=== PATIENT | male | born 1945 | race Caucasian/White ===

== ENCOUNTER 2020-12-01 08:11 | Inpatient (IN) | payer MEDICARE, OTHER, SELFPAY ==
[2020-12-01] VITALS (16 sets, daily range): BP systolic 122–173; BP diastolic 70–94; PULSE 74–97; RESP 10–22; TEMP 36.6–37.4; O2SAT 94–99; BMI 28.4
--- NOTE | 2020-12-01 | DI.MRI.S_ITS ---
PROCEDURE: MR STROKE Pre- and post-contrast brain MRI, non-contrast brain MR angiogram, pre- and postcontrast neck MR angiogram INDICATIONS: r/o acute infarct TECHNIQUE: Brain: Noncontrast axial T1 spin echo, axial T2 fast spin echo, sagittal and axial FLAIR, coronal T2 fast spin echo, axial gradient echo, axial diffusion and ADC through the brain. After the administration of contrast, axial 3D VIBE of the cranial vasculature and brain. Brain MRA: Non-contrast 3-D time of flight MR angiogram, with multiple qbdskvp-euhuxorfy-qqlkpteraf (MIP) reformats performed. Neck MRA: Axial and sagittal TruFISP through the neck. Coronal dynamic MR angiogram during administration of contrast in the arterial and venous phases, with 3-dimenstional ciiwmxb-ehtniieyp-tclxmsvmdf (MIP) reformats constructed from subtraction images. COMPARISON: [facility], CT, CT HEAD/BRAIN WO CON, 12/01/2020, 8:45. FINDINGS: Image quality: Degraded secondary to motion artifact. BRAIN: CSF spaces: Ventricles are normal in size and shape. Basal cisterns are patent. No extra-axial fluid collections. Brain: No intracranial bleeds or mass effects. Arceo-white matter interface is normal. Multiple foci of restricted diffusion noted in the right centrum semiovale, right gamble radiata, right insula, right putamen and at the junction of the right temporal and occipital lobes compatible with acute infarcts. Small chronic lacunar infarcts noted in the right frontal subcortical white matter. Brainstem appears normal. Normal intravascular flow voids are present. Dural sinuses demonstrate normal postcontrast enhancement. Small area of curvilinear gyral enhancement noted in the right occipital lobe medially dorsal to area of acute infarction concerning for area of late subacute/early chronic infarction. Skull and face: Calvarial marrow signal is normal. Orbits appear normal. Sinuses: Sinuses and mastoids are clear. BRAIN MR ANGIOGRAM: Anterior circulation: Intracranial internal carotid arteries are normal in size and enhancement. The flow within the paired anterior cerebral arteries is normal. 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 There is absence of flow signal in the M1 and M2 segments of the right middle cerebral artery compatible with occlusion. Normal flow signal noted in the left middle cerebral artery. The anterior communicating artery is seen. No stenoses, occlusions, or aneurysms. Posterior circulation: The visualized portions of the vertebral arteries demonstrate normal caliber, and join to form a normal appearing basilar artery. The flow within the posterior cerebral arteries is normal and symmetric. No stenoses, occlusions, or aneurysms. NECK MR ANGIOGRAM: Carotids: Great vessels demonstrate a conventional anatomy as they arise from the aortic arch. The origins of the common carotid arteries appear patent. The calibers and courses of both common carotid arteries are normal. Mild atherosclerotic irregularity noted in the origin of the right internal carotid artery which causes less than 50% stenosis. Moderate atherosclerotic irregularity noted in the origin of the left internal carotid artery which causes approximately 50-60% stenosis of the vessel. Posterior circulation: The origins of the vertebral arteries are poorly visualized due to motion artifact. Well visualized portions of the vertebral arteries demonstrate normal course and caliber, and join to form a normal appearing basilar artery. Miscellaneous: Subclavian arteries appear patent. Pre-contrast images through the neck show no soft tissue abnormalities. IMPRESSION: BRAIN MRI: 1. Acute infarcts involving the right centrum semiovale, right gamble radiata, right putamen, right insula and the junction of the right temporal-occipital lobes. 2. Small subacute infarct involving the right occipital lobe. 3. Chronic lacunar infarcts involving the right frontal subcortical white matter. 4. No intracranial hemorrhage. 5. No abnormal intracranial mass or mass effect. BRAIN MR ANGIOGRAM: 1. Right middle cerebral artery occlusion. 2. Otherwise, normal MR angiogram of the head within limitations related to motion artifact. NECK MR ANGIOGRAM: 1. Less than 50% stenosis of the origin of the right internal carotid artery. 2. 50-60% stenosis of the origin left internal carotid artery. 3. Vertebral arteries appear fully patent where well visualized. Findings telephoned to Dr. Valdes on December 01, 2020 at 11:55 a.m. Dictated by: Caitlin Faust MD, PhD on 12/01/2020 at 11:40 Approved by: Caitlin Faust MD, PhD on 12/01/2020 at 11:58
--- NOTE | 2020-12-01 08:13 | DI.CT.S_ITS ---
PROCEDURE: CT HEAD/BRAIN WO CON INDICATIONS: Altered mental status TECHNIQUE: Noncontrast 4.5 mm thick angled axial sections acquired from the foramen magnum to the vertex, with coronal and sagittal reformats. For radiation dose reduction, the following was used: automated exposure control, adjustment of mA and/or kV according to patient size. COMPARISON: [facility], MR, MR BRAIN WITHOUT CONTRAST, 07/31/2019, 8:25. [facility], CT, CT HEAD WITHOUT CONTRAST, 07/31/2019, 0:32. FINDINGS: Image quality: Excellent. CSF spaces: Basal cisterns are patent. No extra-axial fluid collections. The ventricles are symmetric in size and shape. Brain: No intracranial bleeds or masses. There is cerebral volume loss for age, with resultant ventricular and sulcal prominence. There are periventricular and deep white matter chronic small vessel ischemic changes. Chronic small lacunar infarcts involving the right frontal subcortical white matter in the right caudate body with expected evolution compared to prior MRI obtained July 31, 2019. New hypodensity noted in the left internal capsule which may represent subacute infarct. There is intracranial internal carotid artery atherosclerosis. Skull and face: Calvarium and visualized facial bones appear intact, without suspicious lesions. Sinuses: Visualized sinuses and mastoids are clear. IMPRESSION: 1. Small hypodensity in the left internal capsule which may represent subacute infarct. Recommend MRI of the brain for further evaluation. 2. Multiple small right frontal subcortical white matter chronic lacunar infarcts have undergone expected evolution interval since prior exam obtained July 13, 2019. 3. No intracranial hemorrhage. Dictated by: Caitlin Faust MD, PhD on 12/01/2020 at 8:57 Approved by: Caitlin Faust MD, PhD on 12/01/2020 at 9:02
--- NOTE | 2020-12-01 08:20 | ED.GENADULT ---
HPI - General Adult General Chief complaint: Neuro Symptoms/Deficit Stated complaint: Confused Time Seen by Provider: 12/01/20 08:11 Source: patient and EMS Mode of arrival: EMS Limitations: altered mental status History of Present Illness HPI narrative: Patient is a 75-year-old male brought in by EMS for evaluation of confusion and left-sided deficits. Is reported by EMS that the patient has had a stroke a couple years ago with right-sided deficits and is now having left-sided deficit. He was found confused this morning. Blood sugar was in the 70s prior to arrival. Patient able to only provided minimal information secondary to problems speaking. Related Data Home Medications Medication Instructions Recorded Confirmed albuterol sulfate [ProAir HFA] 2 puff INHALATION Q4H PRN 12/01/20 12/01/20 amitriptyline 25 mg PO BEDTIME 12/01/20 12/01/20 amlodipine 5 mg PO BEDTIME 12/01/20 12/01/20 aspirin 81 mg PO DAILY 12/01/20 12/01/20 atorvastatin 80 mg PO BEDTIME 12/01/20 12/01/20 baclofen 5 mg PO BEDTIME 12/01/20 12/01/20 clopidogrel 75 mg PO DAILY 12/01/20 12/01/20 fluticasone propionate [Flonase] 2 spray INTRANASAL BID 12/01/20 12/01/20 fluticasone propionate [Flovent 2 puff INHALATION BID 12/01/20 12/01/20 HFA] lisinopril 20 mg PO DAILY 12/01/20 12/01/20 sertraline 50 mg PO DAILY 12/01/20 12/01/20 Allergies Allergy/AdvReac Type Severity Reaction Status Date / Time No Known Drug Allergies Allergy Verified 12/01/20 14:22 Review of Systems Review of Systems ROS Unobtainable: Unobtainable due to mental status/LOC Patient History Medical History Anxiety COPD (chronic obstructive pulmonary disease) with emphysema CVA (cerebral vascular accident) Hypertension Social History household members: children lives independently: Yes Smoking Status: Former smoker Exam Initial Vital Signs Initial Vital Signs: Vital Signs Temperature 97.9 F 12/01/20 08:16 Pulse Rate 74 12/01/20 08:16 Blood Pressure 173/89 H 12/01/20 08:16 Pulse Oximetry 99 12/01/20 08:16 Const General: cooperative, comfortable and No ill appearing Limitations: altered mental status HENMT Head: normal to inspection and normocephalic Ears: hearing grossly normal bilaterally Nose: external nose normal Mouth: oral mucosae normal Eyes Pupils: PERRL Chest Chest: No tenderness Resp Effort & Inspection: normal respiratory effort Auscultation: clear to auscultation bilaterally Cardio Rate: regular rate Rhythm: regular rhythm GI Inspection: non-distended Palpation: soft Back/Spine/Pelvis Cervical Spine: No cervical spinal tenderness Skin Lesions: no lesions Rashes: no rashes Neuro General: patient alert and patient awake Speech: abnormal speech Extrem General: capillary refill normal and No edema Psych Appearance: grossly normal and well kempt Scores GCS [place] coma scale eye opening: Spontaneous Jenna coma scale verbal response: Words [place] coma scale motor response: Obey commands Jenna coma scale total score: 13 NIH Stroke Scale Level of Conciousness: Alert, keenly responsive Ask month/age: Answers one question correctly, intubated follow commands Open/close eyes, close hand: Performs both tasks correctly Best gaze horizontal: Normal Visual clements: No visual loss Facial palsy: Minor paralysis, flattened nasolabial fold, asymmetry on smiling Left arm drift: No drift for full 10 sec Right arm drift: No drift for full 10 sec Left leg drift: Drifts down, not to bed Right leg drift: No drift for full 5 sec Limb ataxia: Present in two limbs Sensory on face/arms/legs: Normal, no sensory loss Best language: Severe aphasia, not much is understood, fragmented Dysarthria: Mild to mod,some slurring Extinction or inattention: No abnormality Total NIH Stroke scale score: 8 Course Orders Ordered: ED Orders 12/01/20 08:53 COVID19 - ADMIT (PROJECT GEOLOGIST swab/PCR) Stat 12/01/20 10:05 XR chest 1V Stat 12/01/20 10:07 Consult to [facility] DOCTOR[facility]EARCHER - Director Script Stat 12/01/20 11:56 Blood Culture Stat Albuterol (Albuterol 2.5 Mg/3 Ml Neb (Adult)) 2.5 mg INH [id number] PRN PRN Reason: Shortness Of Breath Amitriptyline HCl (Amitriptyline 25 Mg Tablet) 25 mg PO BEDTIME BRANDIE Amlodipine Besylate (Amlodipine 5 Mg Tablet) 5 mg PO BEDTIME BRANDIE Atorvastatin Calcium (Atorvastatin 20 Mg Tablet) 80 mg PO BEDTIME BRANDIE Budesonide (Budesonide 0.5 Mg/2 Ml Neb) 0.5 mg INH RTBID BRANDIE Hydralazine HCl (Hydralazine 20 Mg/Ml Vial) 10 mg IV Q6HR PRN PRN Reason: Hypertension Sodium Chloride (Normal Saline 0.9%) 1,000 mls @ 125 mls/hr IV CONT BRANDIE Heparin Sodium/Dextrose (Heparin Drip) 25,000 unit in 500 mls @ 20 mls/hr IV CONT BRANDIE; Protocol Lisinopril (Lisinopril 20 Mg Tablet) 20 mg PO DAILY BRANDIE Sertraline HCl (Sertraline 50 Mg Tablet) 50 mg PO DAILY BRANDIE Discontinued Medications Midodrine (Midodrine Hcl 5 Mg Tablet) 10 mg PO NOW ONE Stop: 12/01/20 08:52 Vital Signs Vital signs: Vital Signs - 8 hr 12/01/20 10:21 12/01/20 11:35 12/01/20 11:38 Pulse Rate 81 96 H 92 H Respiratory Rate 16 22 Blood Pressure 131/94 H Pulse Oximetry 98 97 98 12/01/20 12:00 12/01/20 12:30 12/01/20 13:00 Pulse Rate 81 77 79 Respiratory Rate 20 17 14 Blood Pressure 137/78 146/81 H 132/70 Pulse Oximetry 98 97 96 12/01/20 13:30 Pulse Rate 78 Respiratory Rate 12 Blood Pressure 122/74 Pulse Oximetry 96 Medical Decision Making Lab Data Lab results reviewed: Yes I reviewed the patient's lab results. Result diagrams: 12/01/20 08:27 12/01/20 08:27 Labs: Lab Results 12/01/20 12/01/20 12/01/20 Range/Units 08:27 08:27 08:27 WBC 7.5 (4.5-11.0) X10^3/uL RBC 4.74 (4.5-5.9) X10^6/uL Hgb 15.4 (13.5-17.5) g/dL Hct 44.2 (41-53) % MCV 93.1 (80-100) fL MCH 32.4 (26-34) PG MCHC 34.8 (30-36) % RDW 13.1 (11.6-14.8) % Plt Count 290 (150-400) X10^3/uL Neut % (Auto) 64.0 (50-75) % Lymph % (Auto) 24.3 L (25-40) % [place] % (Auto) 9.4 (3-14) % Eos % (Auto) 1.4 L (2-4) % Baso % (Auto) 0.9 (0-2) % Neut # (Auto) 4800 (4570-7563) /uL Lymph # (Auto) 1800 (6637-0832) /uL [place] # (Auto) 700 (0-900) /uL Eos # (Auto) 100 (0-450) /uL Baso # (Auto) 100 (0-100) /uL PT 11.0 (10.1-12.7) SECONDS INR 1.0 (0.9-1.3) APTT 32 (26.4-36.2) SECONDS Sodium 136 L (137-145) mmol/L Potassium 3.8 (3.4-5.1) mmol/L Chloride 104 (98-107) mmol/L Carbon Dioxide 24 (22-32) mmol/L BUN 24 H (9-20) mg/dL Creatinine 0.82 (0.66-1.25) mg/dL Estimated GFR > 60.0 (>60) mL/min BUN/Creatinine Ratio 29.3 H (6-22) Glucose 106 (80-110) mg/dL Calcium 9.4 (8.4-10.2) mg/dL Total Bilirubin 0.7 (0.2-1.3) mg/dL AST 60 H (17-59) IU/L ALT 63 H (<50) IU/L Alkaline Phosphatase 92 (38-126) U/L Ammonia (9-30) umol/L Total Creatine Kinase 159 (55-170) U/L Total Protein 7.5 (6.3-8.2) g/dL Albumin 4.2 (3.5-5.0) g/dL Globulin 3.3 (1.7-4.1) g/dL Albumin/Globulin Ratio 1.3 (1.0-2.8) Lipase 208 (23-300) U/L Ethyl Alcohol < 10 ( - 10) mg/dL SARS-CoV-2 (PCR) (Negative) 12/01/20 12/01/20 Range/Units 08:27 08:53 WBC (4.5-11.0) X10^3/uL RBC (4.5-5.9) X10^6/uL Hgb (13.5-17.5) g/dL Hct (41-53) % MCV (80-100) fL MCH (26-34) PG MCHC (30-36) % RDW (11.6-14.8) % Plt Count (150-400) X10^3/uL Neut % (Auto) (50-75) % Lymph % (Auto) (25-40) % [place] % (Auto) (3-14) % Eos % (Auto) (2-4) % Baso % (Auto) (0-2) % Neut # (Auto) (3458-4878) /uL Lymph # (Auto) (9187-0108) /uL [place] # (Auto) (0-900) /uL Eos # (Auto) (0-450) /uL Baso # (Auto) (0-100) /uL PT (10.1-12.7) SECONDS INR (0.9-1.3) APTT (26.4-36.2) SECONDS Sodium (137-145) mmol/L Potassium (3.4-5.1) mmol/L Chloride (98-107) mmol/L Carbon Dioxide (22-32) mmol/L BUN (9-20) mg/dL Creatinine (0.66-1.25) mg/dL Estimated GFR (>60) mL/min BUN/Creatinine Ratio (6-22) Glucose (80-110) mg/dL Calcium (8.4-10.2) mg/dL Total Bilirubin (0.2-1.3) mg/dL AST (17-59) IU/L ALT (<50) IU/L Alkaline Phosphatase (38-126) U/L Ammonia < 9 L (9-30) umol/L Total Creatine Kinase (55-170) U/L Total Protein (6.3-8.2) g/dL Albumin (3.5-5.0) g/dL Globulin (1.7-4.1) g/dL Albumin/Globulin Ratio (1.0-2.8) Lipase (23-300) U/L Ethyl Alcohol ( - 10) mg/dL SARS-CoV-2 (PCR) Negative (Negative) Imaging Data CT scan - head: Radiologist's Impression: [address] [id number] Scan ReportSigned Patient: Senthil Anderson HMR#: [id number]: 1945cct:[id number]/Sex: 75 / MDate of Service: 12/01/20Loc: EDAccession Number: [id number] Procedure: CT head/brain wo con Ordering Provider: Kevon Martinez D.O. PROCEDURE: CT HEAD/BRAIN WO CON INDICATIONS: Altered mental status TECHNIQUE: Noncontrast 4.5 mm thick angled axial sections acquired from the foramen magnum to the vertex, with coronal and sagittal reformats. For radiation dose reduction, the following was used: automated exposure control, adjustment of mA and/or kV according to patient size. COMPARISON: [facility], MR, MR BRAIN WITHOUT CONTRAST, 07/31/2019, 8:25. [facility], CT, CT HEAD WITHOUT CONTRAST, 07/31/2019, 0:32. FINDINGS: Image quality: Excellent. CSF spaces: Basal cisterns are patent. No extra-axial fluid collections. The ventricles are symmetric in size and shape. Brain: No intracranial bleeds or masses. There is cerebral volume loss for age, with resultant ventricular and sulcal prominence. There are periventricular and deep white matter chronic small vessel ischemic changes. Chronic small lacunar infarcts involving the right frontal subcortical white matter in the right caudate body with expected evolution compared to prior MRI obtained July 31, 2019. New hypodensity noted in the left internal capsule which may represent subacute infarct. There is intracranial internal carotid artery atherosclerosis. Skull and face: Calvarium and visualized facial bones appear intact, without suspicious lesions. Sinuses: Visualized sinuses and mastoids are clear. IMPRESSION: 1. Small hypodensity in the left internal capsule which may represent subacute infarct. Recommend MRI of the brain for further evaluation. 2. Multiple small right frontal subcortical white matter chronic lacunar infarcts have undergone expected evolution interval since prior exam obtained July 13, 2019. 3. No intracranial hemorrhage. Dictated by: Caitlin Faust MD, PhD on 12/01/2020 at 8:57 Approved by: Caitlin Faust MD, PhD on 12/01/2020 at 9:02 Chest x-ray: Radiologist's Impression: [address] [id number] ReportSigned Patient: Senthil Anderson [facility]#: [id number]: 1945cct:[id number]/Sex: 75 / MDate of Service: 12/01/20Loc: EDAccession Number: [id number] Procedure: XR chest 1V Ordering Provider: Kevon Martinez D.O. PROCEDURE: XR CHEST 1V INDICATIONS: cva TECHNIQUE: One view of the chest was acquired. COMPARISON: None. FINDINGS: Surgical changes and devices: None. Lungs and pleura: Lungs are clear. No pleural effusions or pneumothorax. Mediastinum: Mediastinal contours appear normal. Heart size is normal. Bones and chest wall: No suspicious bony lesions. Overlying soft tissues appear unremarkable. IMPRESSION: Normal for age, source of current stroke symptoms is not seen. Dictated by: Ankit Colunga M.D. on 12/01/2020 at 11:10 Approved by: Ankit Colunga M.D. on 12/01/2020 at 11:10 Stroke MRI: Radiologist's Impression: [address] [id number] Resonance ReportSigned Patient: Senthil Anderson [facility]#: [id number]: 1945cct:[id number]/Sex: 75 / MDate of Service: 12/01/20Loc: EDAccession Number: [id number] Procedure: MR stroke Ordering Provider: Russ Valdes D.O. PROCEDURE: MR STROKE Pre- and post-contrast brain MRI, non-contrast brain MR angiogram, pre- and postcontrast neck MR angiogram INDICATIONS: r/o acute infarct TECHNIQUE: Brain: Noncontrast axial T1 spin echo, axial T2 fast spin echo, sagittal and axial FLAIR, coronal T2 fast spin echo, axial gradient echo, axial diffusion and ADC through the brain. After the administration of contrast, axial 3D VIBE of the cranial vasculature and brain. Brain MRA: Non-contrast 3-D time of flight MR angiogram, with multiple kdshlxc-yjunruble-otkwexqfjb (MIP) reformats performed. Neck MRA: Axial and sagittal TruFISP through the neck. Coronal dynamic MR angiogram during administration of contrast in the arterial and venous phases, with 3-dimenstional yhuiqmk-efvmocksu-jhmzbjcchy (MIP) reformats constructed from subtraction images. COMPARISON: [facility], CT, CT HEAD/BRAIN WO CON, 12/01/2020, 8:45. FINDINGS: Image quality: Degraded secondary to motion artifact. BRAIN: CSF spaces: Ventricles are normal in size and shape. Basal cisterns are patent. No extra-axial fluid collections. Brain: No intracranial bleeds or mass effects. Arceo-white matter interface is normal. Multiple foci of restricted diffusion noted in the right centrum semiovale, right gamble radiata, right insula, right putamen and at the junction of the right temporal and occipital lobes compatible with acute infarcts. Small chronic lacunar infarcts noted in the right frontal subcortical white matter. Brainstem appears normal. Normal intravascular flow voids are present. Dural sinuses demonstrate normal postcontrast enhancement. Small area of curvilinear gyral enhancement noted in the right occipital lobe medially dorsal to area of acute infarction concerning for area of late subacute/early chronic infarction. Skull and face: Calvarial marrow signal is normal. Orbits appear normal. Sinuses: Sinuses and mastoids are clear. BRAIN MR ANGIOGRAM: Anterior circulation: Intracranial internal carotid arteries are normal in size and enhancement. The flow within the paired anterior cerebral arteries is normal. 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 There is absence of flow signal in the M1 and M2 segments of the right middle cerebral artery compatible with occlusion. Normal flow signal noted in the left middle cerebral artery. The anterior communicating artery is seen. No stenoses, occlusions, or aneurysms. Posterior circulation: The visualized portions of the vertebral arteries demonstrate normal caliber, and join to form a normal appearing basilar artery. The flow within the posterior cerebral arteries is normal and symmetric. No stenoses, occlusions, or aneurysms. NECK MR ANGIOGRAM: Carotids: Great vessels demonstrate a conventional anatomy as they arise from the aortic arch. The origins of the common carotid arteries appear patent. The calibers and courses of both common carotid arteries are normal. Mild atherosclerotic irregularity noted in the origin of the right internal carotid artery which causes less than 50% stenosis. Moderate atherosclerotic irregularity noted in the origin of the left internal carotid artery which causes approximately 50-60% stenosis of the vessel. Posterior circulation: The origins of the vertebral arteries are poorly visualized due to motion artifact. Well visualized portions of the vertebral arteries demonstrate normal course and caliber, and join to form a normal appearing basilar artery. Miscellaneous: Subclavian arteries appear patent. Pre-contrast images through the neck show no soft tissue abnormalities. IMPRESSION: BRAIN MRI: 1. Acute infarcts involving the right centrum semiovale, right gamble radiata, right putamen, right insula and the junction of the right temporal-occipital lobes. 2. Small subacute infarct involving the right occipital lobe. 3. Chronic lacunar infarcts involving the right frontal subcortical white matter. 4. No intracranial hemorrhage. 5. No abnormal intracranial mass or mass effect. BRAIN MR ANGIOGRAM: 1. Right middle cerebral artery occlusion. 2. Otherwise, normal MR angiogram of the head within limitations related to motion artifact. NECK MR ANGIOGRAM: 1. Less than 50% stenosis of the origin of the right internal carotid artery. 2. 50-60% stenosis of the origin left internal carotid artery. 3. Vertebral arteries appear fully patent where well visualized. Findings telephoned to Dr. Valdes on December 01, 2020 at 11:55 a.m. Dictated by: Caitlin Faust MD, PhD on 12/01/2020 at 11:40 Approved by: Caitlin Faust MD, PhD on 12/01/2020 at 11:58 ECG Data Attestation: I personally reviewed and interpreted this ECG as follows: Prior ECG tracings: not available for review Interpretation: Sinus rhythm Ventricular rate of 75 Normal axis Normal QRS Normal QTC No ST T wave changes MDM Narrative Medical decision making narrative: Patient is really unable to provide any sort of HPI given his dysarthria/aphasia. His sister who is at bedside provided much of the history and I was also able to get some from a prior note. According to the notes sent the facility where he was admitted just a couple days ago his presenting NIH score was 3. His NIH score today is 8. He is outside the window for tPA. Unsure what symptoms he presents with today are new versus old. It does appear that he was conversive and had only slight dysarthria at the prior facility but this is based on his sister and also the notes. I discussed the case with Dr. Valdes with Internal Medicine who recommended we obtain a MRI to see whether not his symptoms that he is presenting with today are related to a new stroke versus old symptoms. This was ordered. I did discuss the case with Dr. Pradhan with Stroke Neurology who was able to review his prior MRI. She states that the findings today are new in the do seem to be embolic verses water shed a couple days ago. She agreed with no tPA. She also felt that he was not a code IR candidate. She stated that given his presentation a transfer to [facility] would not be unreasonable however if he would prefer to stay here closer to his family that would be okay as well and that they would be available for consultation. I had a discussion with the family and they would like to stay in the local area. Dr. Valdes did evaluate the patient at the emergency department and will admit for further evaluation treatment. Critical Care Time Critical Care Time Critical Care Time: Yes Total Critical Care Time: 35 Attestation: The high probability of a clinically significant, sudden or life threatening deterioration of the neurologic system(s) required my full and direct attention, intervention and personal management. The aggregate critical care time was 35 minutes. This time is in addition to time spent performing reported procedures but includes the following: [X] Data Review and interpretation [X] Patient assessment and monitoring of vital signs [X] Documentation [X] Medication orders and management Discharge Plan Departure Patient Disposition: Admitted As Inpatient Clinical Impression: Cerebrovascular accident Admit Date/Time: 12/01/20 13:33 Admit Provider: Russ Valdes
[2020-12-01 08:40] LABS: Add Manual Diff / Slide Review NO; Basophils Absolute Auto 100 /uL (0-100); Basophils Percent Auto 0.9 % (0-2); Eosinophils Absolute Auto 100 /uL (0-450); Eosinophils Percent Auto 1.4 % (2-4); Hematocrit 44.2 % (41-53); Hemoglobin 15.4 g/dL (13.5-17.5); Lymphocytes Absolute Auto 1800 /uL (1100-4500); Lymphocytes Percent Auto 24.3 % (25-40); Mean Corpuscular HGB Conc 34.8 % (30-36); Mean Corpuscular Hemoglobin 32.4 PG (26-34); Mean Corpuscular Volume 93.1 fL (80-100); Monocytes Absolute Auto 700 /uL (0-900); Monocytes Percent Auto 9.4 % (3-14); Neutrophils Absolute Auto 4800 /uL (1500-7000); Platelet Count 290 X10^3/uL (150-400); Red Blood Cell Count 4.74 X10^6/uL (4.5-5.9); Red Cell Distribution Width 13.1 % (11.6-14.8); White Blood Cell Count 7.5 X10^3/uL (4.5-11.0)
[2020-12-01 08:50] LABS: PTT Partial Thromboplastin Tim 32 SECONDS (26.4-36.2)
[2020-12-01 08:55] LABS: Alanine Aminotransferase 63 IU/L (<50); Albumin 4.2 g/dL (3.5-5.0); Albumin Globulin Ratio 1.3 (1.0-2.8); Alkaline Phosphatase 92 U/L (38-126); Ammonia (NH3) < 9 umol/L (9-30); Aspartate Aminotransferase 60 IU/L (17-59); BUN Creatinine Ratio 29.3 (6-22); Bilirubin Total 0.7 mg/dL (0.2-1.3); Blood Urea Nitrogen 24 mg/dL (9-20); Calcium 9.4 mg/dL (8.4-10.2); Carbon Dioxide 24 mmol/L (22-32); Chloride 104 mmol/L (98-107); Creatine Kinase 159 U/L (55-170); Estimated Glomerular Filt Rate > 60.0 mL/min (>60); Ethanol (ETOH) < 10 mg/dL; Globulin 3.3 g/dL (1.7-4.1); Glucose 106 mg/dL (80-110); HEMOLYSIS < 15 (0-50); Lipase 208 U/L (23-300); Potassium 3.8 mmol/L (3.4-5.1); Sodium 136 mmol/L (137-145); Total Protein 7.5 g/dL (6.3-8.2)
--- NOTE | 2020-12-01 10:05 | DI.RAD.S_ITS ---
PROCEDURE: XR CHEST 1V INDICATIONS: cva TECHNIQUE: One view of the chest was acquired. COMPARISON: None. FINDINGS: Surgical changes and devices: None. Lungs and pleura: Lungs are clear. No pleural effusions or pneumothorax. Mediastinum: Mediastinal contours appear normal. Heart size is normal. Bones and chest wall: No suspicious bony lesions. Overlying soft tissues appear unremarkable. IMPRESSION: Normal for age, source of current stroke symptoms is not seen. Dictated by: Ankit Colunga M.D. on 12/01/2020 at 11:10 Approved by: Ankit Colunga M.D. on 12/01/2020 at 11:10
[2020-12-01 10:34] LABS: COVID19 - ADMIT (NP swab/PCR) Negative (Negative)
--- NOTE | 2020-12-01 14:26 | P.HP_ITS ---
History of Present Illness History of Present Illness Date Patient Seen: 12/01/20 Time Patient Seen: 14:27 Chief complaint: Confused Narrative: Senthil Anderson is a 75 year old male without past medical history of hypertension, COPD, and multiple previous CVAs, most recently was admitted to [facility] and discharged on November 29 for an acute CVA of the R MCA. Patient's family reports that yesterday evening he developed more difficulty speaking and had worsening left-sided weakness. He was also noted to be more difficult to arouse and was quite a bit weaker than when he had left the hospital. He was also having more difficulty communicating, seemingly confused. He does complain of some pressure in his lower abdomen, but denies any chest pain, shortness of breath, palpitations. Upon questioning, the patient sometimes responds inappropriately with nonsense, making review of systems quite difficult to obtain. According to review of the discharge summary from [facility], he was admitted on 11/24 and discharged on 11/29. On admission he had an NIHSS of 3 and was started on DAPT. his lisinopril was also increased to 20 mg during that admission. He had been living in [place], but after his stroke he moved closer to family in [place]. In the emergency room, the patient's vital signs are unremarkable. Laboratory evaluations revealed an unremarkable CBC, normal coagulation studies, fairly unremarkable chemistry panel with only mild elevations in AST and ALT of 60 and 63 respectively. Alcohol level was negative. Ammonia level was less than 9. COVID-19 testing was negative. EKG showed normal sinus rhythm. NIHSS was approximately 10. CT head and MRI stroke protocol are noted below, in short MRI showing multiple new acute right infarcts with a right MCA occlusion. Tele stroke services were consulted in the emergency room, and I discussed the recommendations myself with Dr. Pradhan, the neurologist at [facility]. Thankfully, Dr. Pradhan had been involved in the care with this patient at [facility] and was also able to review the prior imaging. She was concerned for stump syndrome, and recommended cessation of the patient's aspirin and Plavix and instead initiation of a heparin drip for 48 hours followed by repeat head CT with then subsequent initiation of Coumadin for approximately 30 days. She also possibly was considering a bypass surgery, however this is rarely done. Family elected to stay at [facility], despite not having neurology or neuro surgery if there were to be any complications arising from treating him with heparin, and they understood these risks. They also reiterated that they may not even want any interventions done were he to have a bleed. Patient was able to communicate somewhat, he is currently DNR, and stated to me he would not want a feeding tube. He will Be admitted to the ICU for close neurologic monitoring after this acute CVA while being placed on heparin infusion. Patient History Medical History Anxiety COPD (chronic obstructive pulmonary disease) with emphysema CVA (cerebral vascular accident) Hypertension Family & Social History Social History: lives independently Yes Safety & Behavioral: Feels Safe in Current Yes Environment Been Physically Hurt or No Threatened By a Person Meds Home Medications and Allergies Home Medications Medication Instructions Recorded Confirmed Type albuterol sulfate [ProAir HFA] 2 puff INHALATION Q4H PRN 12/01/20 12/01/20 History amitriptyline 25 mg PO BEDTIME 12/01/20 12/01/20 History amlodipine 5 mg PO BEDTIME 12/01/20 12/01/20 History aspirin 81 mg PO DAILY 12/01/20 12/01/20 History atorvastatin 80 mg PO BEDTIME 12/01/20 12/01/20 History baclofen 5 mg PO BEDTIME 12/01/20 12/01/20 History clopidogrel 75 mg PO DAILY 12/01/20 12/01/20 History fluticasone propionate [Flonase] 2 spray INTRANASAL BID 12/01/20 12/01/20 History fluticasone propionate [Flovent 2 puff INHALATION BID 12/01/20 12/01/20 History HFA] lisinopril 20 mg PO DAILY 12/01/20 12/01/20 History sertraline 50 mg PO DAILY 12/01/20 12/01/20 History Allergies Allergy/AdvReac Type Severity Reaction Status Date / Time No Known Drug Allergies Allergy Verified 12/01/20 14:22 Review of Systems Review of Systems ROS: Yes unobtainable due to mental status Exam Vital Signs (past 8 hours): - 12/01/20 08:16 12/01/20 10:21 12/01/20 11:35 Temperature 97.9 F Pulse Rate 74 81 96 H Respiratory Rate 16 Blood Pressure 173/89 H Pulse Oximetry 99 98 97 12/01/20 11:38 12/01/20 12:00 12/01/20 12:30 Temperature Pulse Rate 92 H 81 77 Respiratory Rate 22 20 17 Blood Pressure 131/94 H 137/78 146/81 H Pulse Oximetry 98 98 97 12/01/20 13:00 12/01/20 13:30 Temperature Pulse Rate 79 78 Respiratory Rate 14 12 Blood Pressure 132/70 122/74 Pulse Oximetry 96 96 Oxygen Delivery Method Room Air Narrative Exam Narrative: GENERAL APPEARANCE: Chronically ill-appearing elderly male, in no acute distress SKIN: Inspection of the skin reveals no rashes, ulcerations or petechiae. HEENT: Normocephalic atraumatic, extraocular muscles are intact, oropharynx is clear and mucous membranes are dry, neck is supple without adenopathy NECK: Supple and symmetric. There was no thyroid enlargement, and no tenderness, or masses were felt. CHEST: Normal AP diameter and normal contour without any kyphoscoliosis. LUNGS: Auscultation of the lungs revealed no wheezes, rhonchi, or rales. CARDIOVASCULAR: There was a regular rate and rhythm without any murmurs, gallops, rubs. Peripheral pulses were 2+ and symmetric. ABDOMEN: Soft and nontender with normal bowel sounds. No ascites was noted. MUSCULOSKELETAL: There was no tenderness or effusions noted. Muscle strength and tone were normal. EXTREMITIES: No cyanosis, clubbing or edema. NEUROLOGIC: Oriented to name, alert on the floor. Initially in the ER he was quite somnolent and minimally responsive. Reported difference in sensation, although given speaking difficulties this makes it difficult to tell. Objective ECG Impression: Normal sinus rhythm. Rate 74. Imaging MRI - head: Radiologist's impression: PROCEDURE: MR STROKE Pre- and post-contrast brain MRI, non-contrast brain MR angiogram, pre- and post contrast neck MR angiogram INDICATIONS: r/o acute infarct TECHNIQUE: Brain: Noncontrast axial T1 spin echo, axial T2 fast spin echo, sagittal and axial FLAIR, coronal T2 fast spin echo, axial gradient echo, axial diffusion and ADC through the brain. After the administration of contrast, axial 3D VIBE of the cranial vasculature and brain. Brain MRA: Non-contrast 3-D time of flight MR angiogram, with multiple maximum- intensityprojection (MIP) reformats performed. Neck MRA: Axial and sagittal TruFISP through the neck. Coronal dynamic MR angiogram during administration of contrast in the arterial and venous phases, with 3- dimenstional dssmrjl-iheczkqxh-yrcmnihduv (MIP) reformats constructed from subtraction images. COMPARISON: [facility], CT, CT HEAD/BRAIN WO CON, 12/01/2020, 8:45. FINDINGS: Image quality: Degraded secondary to motion artifact. BRAIN: CSF spaces: Ventricles are normal in size and shape. Basal cisterns are patent. No extraaxial fluid collections. Brain: No intracranial bleeds or mass effects. Arceo-white matter interface is normal. Multiple foci of restricted diffusion noted in the right centrum semiovale, right gamble radiata, right insula, right putamen and at the junction of the right temporal and occipital lobes compatible with acute infarcts. Small chronic lacunar infarcts noted in the right frontal subcortical white matter. Brainstem appears normal. Normal intravascular flow voids are present. Dural sinuses demonstrate normal postcontrast enhancement. Small area of curvilinear gyral enhancement noted in the right occipital lobe medially dorsal to area of acute infarction concerning for area of late subacute/early chronic infarction. Skull and face: Calvarial marrow signal is normal. Orbits appear normal. Sinuses: Sinuses and mastoids are clear. BRAIN MR ANGIOGRAM: Anterior circulation: Intracranial internal carotid arteries are normal in size and enhancement. The flow within the paired anterior cerebral arteries is normal. 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 There is absence of flow signal in the M1 and M2 segments of the right middle cerebral artery compatible with occlusion. Normal flow signal noted in the left middle cerebral artery. The anterior communicating artery is seen. No stenoses, occlusions, or aneurysms. Posterior circulation: The visualized portions of the vertebral arteries demonst rate normal caliber, and join to form a normal appearing basilar artery. The flow within the posterior cerebral arteries is normal and symmetric. No stenoses, occlusions, or aneurysms. NECK MR ANGIOGRAM: Carotids: Great vessels demonstrate a conventional anatomy as they arise from the aortic arch. The origins of the common carotid arteries appear patent. The calibers and courses of both common carotid arteries are normal. Mild atherosclerotic irregularity noted in the origin of the right internal carotid artery which causes less than 50% stenosis. Moderate atherosclerotic irregularity noted in the origin of the left internal carotid artery which causes approximately 50- 60% stenosis of the vessel. Posterior circulation: The origins of the vertebral arteries are poorly visualized due to motion artifact. Well visualized portions of the vertebral arteries demonstrate normal course and caliber, and join to form a normal appearing basilar artery. Miscellaneous: Subclavian arteries appear patent. Pre-contrast images through the neck show no soft tissue abnormalities. IMPRESSION: BRAIN MRI: 1. Acute infarcts involving the right centrum semiovale, right gamble radiata, right putamen, right insula and the junction of the right temporal-occipital lobes. 2. Small subacute infarct involving the right occipital lobe. 3. Chronic lacunar infarcts involving the right frontal subcortical white matter. 4. No intracranial hemorrhage. 5. No abnormal intracranial mass or mass effect. BRAIN MR ANGIOGRAM: 1. Right middle cerebral artery occlusion. 2. Otherwise, normal MR angiogram of the head within limitations related to motion artifact. 1. Less than 50% stenosis of the origin of the right internal carotid artery. 2. 50-60% stenosis of the origin left internal carotid artery. 3. Vertebral arteries appear fully patent where well visualized. CT scan - head: Radiologist's impression: IMPRESSION: 1. Small hypodensity in the left internal capsule which may represent subacute infarct. Recommend MRI of the brain for further evaluation. 2. Multiple small right frontal subcortical white matter chronic lacunar infarcts have undergone expected evolution interval since prior exam obtained July 13, 2019. 3. No intracranial hemorrhage. Labs Result Diagrams: 12/01/20 08:27 12/01/20 08:27 Labs: Laboratory Results - last 24 hr 12/01/20 12/01/20 12/01/20 08:27 08:27 08:27 WBC 7.5 RBC 4.74 Hgb 15.4 Hct 44.2 MCV 93.1 MCH 32.4 MCHC 34.8 RDW 13.1 Plt Count 290 Neut % (Auto) 64.0 Lymph % (Auto) 24.3 L [place] % (Auto) 9.4 Eos % (Auto) 1.4 L Baso % (Auto) 0.9 Neut # (Auto) 4800 Lymph # (Auto) 1800 [place] # (Auto) 700 Eos # (Auto) 100 Baso # (Auto) 100 PT 11.0 INR 1.0 APTT 32 Sodium 136 L Potassium 3.8 Chloride 104 Carbon Dioxide 24 BUN 24 H Creatinine 0.82 Estimated GFR > 60.0 BUN/Creatinine Ratio 29.3 H Glucose 106 Calcium 9.4 Total Bilirubin 0.7 AST 60 H ALT 63 H Alkaline Phosphatase 92 Ammonia Total Creatine Kinase 159 Total Protein 7.5 Albumin 4.2 Globulin 3.3 Albumin/Globulin Ratio 1.3 Lipase 208 Ethyl Alcohol < 10 SARS-CoV-2 (PCR) 12/01/20 12/01/20 08:27 08:53 WBC RBC Hgb Hct MCV MCH MCHC RDW Plt Count Neut % (Auto) Lymph % (Auto) [place] % (Auto) Eos % (Auto) Baso % (Auto) Neut # (Auto) Lymph # (Auto) [place] # (Auto) Eos # (Auto) Baso # (Auto) PT INR APTT Sodium Potassium Chloride Carbon Dioxide BUN Creatinine Estimated GFR BUN/Creatinine Ratio Glucose Calcium Total Bilirubin AST ALT Alkaline Phosphatase Ammonia < 9 L Total Creatine Kinase Total Protein Albumin Globulin Albumin/Globulin Ratio Lipase Ethyl Alcohol SARS-CoV-2 (PCR) Negative Assessment & Plan Assessment & Plan narrative: Senthil Anderson is a 75 year old male without past medical history of hypertension, COPD, and multiple previous CVAs, most recently was admitted to [facility] and discharged on November 29 for an acute CVA of the R MCA. Patient's family reports that yesterday evening he developed more difficulty speaking and had worsening left-sided weakness. He was also noted to be more difficult to arouse and was quite a bit weaker than when he had left the hospital. He was also having more difficulty communicating, seemingly confused. He will be admitted to the ICU for close neurologic monitoring after this acute CVA while being placed on heparin infusion. 1. Acute CVA, present on admission - Patient was admitted to [facility] 11/24-11/29 for a R MCA CVA. NIHSS was 3 on that admission and PT notes reviewed show much more function compared to his arrival. He has worsened L sided weakness - MRI showing multiple new acute right infarcts with a right MCA occlusion. Tele stroke services were consulted in the emergency room, and I discussed the recommendations myself with Dr. Pradhan, the neurologist at [facility]. Thankfully, Dr. Pradhan had been involved in the care with this patient at [facility] and was also able to review the prior imaging. She was concerned for stump syndrome, and recommended cessation of the patient's aspirin and Plavix and instead initiation of a heparin drip for 48 hours followed by repeat head CT with then subsequent initiation of Coumadin for approximately 30 days. She also possibly was considering a bypass surgery, however this is rarely done. Family elected to stay at [facility], despite not having neurology or neuro surgery if there were to be any complications arising from treating him with radha michele, and they understood these risks. They also reiterated that they do not and the patient would not want any interventions done were he to have a bleed. Patient was able to communicate somewhat, he is currently DNR, and stated to me he would not want a feeding tube. - NIHSS in the ER 10, on my examination this was 9 as documented below. ICU status for q2 hour neurochecks while on heparin infusion and high risk of bleeding. - consult PT/OT after heparin infusion. - Speech therapy ordered - Telestroke recommended rapid follow up if discharged, with either [facility] in [place] or Stroke neurologist associated with [facility] or [facility] Stroke Neurologists if family willing. - Repeat CT after 48 hours (12/03 4pm) on heparin infusion, continue monitoring ptt q6 hours. - Start Coumadin if no bleeding on follow up CT imaging. - stop asa and plavix per telestroke. -echocardiogram was recently performed at [facility] about a week ago, this showed an EF of 60-65%, grade 1 diastolic dysfunction, mild left ventricular hypertrophy, and a negative bubble study. 2. HTN - permissive hypertension allowed, but recommended by telestroke SBP <160. Will order home medications to start tomorrow evening. 3. COPD, without acute exacerbation. - RT eval and treat, replace home fluticasone with budesonide BID, albuterol prn ordered. 4. Chronic diastolic heart failure - patient with TTE at [facility] showing grade I diastolic heart failure. Does not appear to be acutely overloaded. Continue home antihypertensives as noted above. Code: DNR, surrogate decision maker is Lilly BACON DVT: on heparin infusion Dispo: Admit to ICU for close neurological monitoring in setting of CVA and recommended heparin infusion. High risk of mortality discussed with patient's family, prognosis is guarded. Will depend on swallow evaluation and what he can eat. Family is open to hospice if his status further declines. I spent 50 minutes providing critical care management this patient including patient management as well as extensive discussion regarding goals of care with the patient and his family. This excludes time spent in performing separately billed procedures. Scores NIHSS Level of Conciousness: Alert, keenly responsive Ask month/age: Answers neither question correctly, aphasic, stuporous, coma Open/close eyes, close hand: Performs both tasks correctly Best gaze horizontal: Normal Visual clements: No visual loss Facial palsy: Minor paralysis, flattened nasolabial fold, asymmetry on smiling Left arm drift: Drifts down, not to bed Right arm drift: No drift for full 10 sec Left leg drift: Some effort against gravity, cannot maintain, drifts down to bed Right leg drift: No drift for full 5 sec Limb ataxia: Present in one limb Sensory on face/arms/legs: Normal, no sensory loss Best language: Mild to moderate, slurs some words Dysarthria: Mild to mod,some slurring Extinction or inattention: No abnormality Total NIH Stroke scale score: 9
--- NOTE | 2020-12-01 15:21 | PC.NURSE ---
Admit Note Pt arrived to room 228 from ER at 1430, transferred to bed via slider board. Difficult to assess orientation due to garbled speech/word salad. LLE weak and pt reports it feels heavy, pt unable to lift LUE, left facial droop noted. Oriented to room and to bed/tv/call light controls. Bed alarm is on. All belongings with FRANK Carter. Admission assessment done with assist from Lilly and [facility] paperwork. Dr. Valdes in room, awaiting orders.
[2020-12-01] MEDS: SODIUM CHLORIDE 0.9% 1,000 ML 125 ML IV (16:48)
[2020-12-01] MEDS: HEPARIN DRIP 25,000 UNIT/500 ML IV.SOLN 20 UNIT IV (17:02)
[2020-12-01] MEDS: BUDESONIDE 0.5 MG/2 ML NEB INH (20:19)
[2020-12-01] MEDS: ATORVASTATIN 20 MG TABLET 80 MG PO (21:29)
--- NOTE | 2020-12-01 22:44 | PC.NURSE ---
PT WITH GARBLED SPEECH AT BEGINNING OF SHIFT HAS CLEARED SOMEWHAT DURING EVENING- WAS ABLE TO PASS RN SWALLOW BEDSIDE ASSESSMENT AND TOOK PILLS WHOLE IN A CARRIER OF APPLESAUCE AND FEW SIPS OF H20 FROM STRAW WITH ASSIST TO HOLD CUP- LUNGS DIM BUT CLEAR-PT HAD URGENT LIQUID BM AND WAS ABLE TO MAKE IT TO BSC- UNABLE TO OBTAIN URINE SAMPLE PT HAS BEEN MOSTLY INCONTINENT- NSR WITH RARE PVC AND AN EPISODE OF 10 BEAT RUN OF VT WHICH PT REMAINED ASYMPTOMATIC AND WAS SELF LIMITING. HEPARIN GTT INITIATED AT 1700 AND WILL REPEAT PTT AT 2300- IVF CONTINUES AT 125CC/H AND PT IS SLEEPING PEACEFULLY AT PRESENT
[2020-12-01 23:16] LABS: PTT Partial Thromboplastin Tim 58 SECONDS (26.4-36.2)
[2020-12-02] VITALS (35 sets, daily range): BP systolic 130–196; BP diastolic 71–91; PULSE 74–96; RESP 14–25; TEMP 36.4–36.6; O2SAT 94–99
[2020-12-02] MEDS: SODIUM CHLORIDE 0.9% 1,000 ML 125 ML IV ×2 (01:09→09:51)
[2020-12-02 05:18] LABS: Platelet Count 263 X10^3/uL (150-400)
[2020-12-02 05:31] LABS: PTT Partial Thromboplastin Tim 76 SECONDS (26.4-36.2)
--- NOTE | 2020-12-02 06:07 | PC.NURSE ---
Sales Account Coordinator Note-Patient was drowsy and slept throughout the night, when woke for neuro checks, he would says well hi there, when asked what his name is, he stated 447, can spontaneously say 2-3 word sentences appropriately and follow simple directions, but can answer places, date, time, events. Heparin gtt 1100units/hr overnight, see flow sheet, no s/s bleeding, denies pain. Voided 100ml tea colored urine in urinal with assist + small incontinence.
[2020-12-02 06:16] LABS: Hematocrit 38.3 % (41-53); Hemoglobin 13.4 g/dL (13.5-17.5)
[2020-12-02] MEDS: BUDESONIDE 0.5 MG/2 ML NEB INH ×2 (08:05→20:58)
[2020-12-02] MEDS: SERTRALINE 50 MG TABLET PO (09:52)
--- NOTE | 2020-12-02 10:26 | OT.IP.EVAL ---
Current Diagnoses Cerebral infarction, unspecified (12/01/20) Past Medical History (Last Reviewed 12/01/20 @ 15:50 by Russ Valdes DO) Anxiety COPD (chronic obstructive pulmonary disease) with emphysema CVA (cerebral vascular accident) Hypertension Occupational Therapy Inpatient Evaluation/Re-Eval M1 PT/OT-IP Prior Functional Status Start: 12/02/20 11:13 Freq: NEEDED Status: Active Protocol: Document 12/02/20 11:13 [facility] (Rec: 12/02/20 11:29 [facility] [id number]) Medical Review Prior Functional Status Communication Pt has had prior CVA therefore not sure of how it compares to now. Pt agreed that he is not able to get the words out, easily distracted and having trouble understanding. Mobility and Gait Pt having trouble getting his words out, therefore not sure of his prior level of care for all of his needs. Activities of Daily Living and IADL's Pt states prior he was able to care for himself, but unsure if information is accurate as pt having difficulty for understanding and also for getting the words out.. Social History Household Members Living Arrangements House M2 OT-IP Current Condition Start: 12/02/20 11:13 Freq: Status: Active Protocol: Document 12/02/20 11:13 [facility] (Rec: 12/02/20 11:29 [facility] [id number]) Occupational Therapy Current Condition Current Condition Evaluation Date 12/02/20 Treatment Diagnosis CVA Diagnosis Onset Date 12/01/20 M3 OT- IP Subjective and Pain Start: 12/02/20 11:13 Freq: Status: Active Protocol: Document 12/02/20 11:13 [facility] (Rec: 12/02/20 11:29 [facility] [id number]) OT- Subjective Occupational Therapy Visit Type Type Initial Evaluation Visit Start Time 09:50 Visit Stop Time 10:26 Total Visit Minutes 36 Occupational Therapy Visit Comments Patient Comments Pt agreed to do OT eval. Patient/Caregiver Goals Pt agreed would be best for pt to go to acute rehab. OT Pain Assessment Pain When Pain Assessed At Rest Pain Present Pain Present Denied Pain M4 OT- IP ADL's Start: 12/02/20 11:13 Freq: Status: Active Protocol: Document 12/02/20 11:13 [facility] (Rec: 12/02/20 11:29 [facility] [id number]) OT [id number] Comments OT Self-Feeding Comments Not at meal time. Noted left facial droop and pt needing cues to control his saliva. OT ADL-Grooming Comments OT Grooming Comments Not performed. OT ADL-Dressing General Eval Lower Body Dressing Ability Moderate Assistance Comments OT Dressing Comments Pt able to theresa/doff his socks mainly with right hand and needing MODA to help fully incorporate left hand to grasp the sock. Pt will needing more assist if standing and dong LB dressing needs at this time due to his decreased dynamic balance. OT ADL-Toileting Comments OT Toileting Comments Pt not having to go at this time. OT ADL-Bathing Comments OT Bathing Comments Not performed. M5 OT- IP IADL's Start: 12/02/20 11:13 Freq: Status: Active Protocol: Document 12/02/20 11:13 [facility] (Rec: 12/02/20 11:29 [facility] [id number]) OT-Instrumental Activities of Daily Living Deficits IADL Deficits Identified Deficits Home Safety Awareness Awareness of Need for Assistance at Home Decreased Awareness Ability to Problem Solve Emergency Unable to Problem Solve Situations Home Safety Comments Due to pt's expressive and receptive aphasia, pt needing assist for all needs of ADl's and IADL's at this time. M6 OT- IP Functional Cognition Start: 12/02/20 11:13 Freq: Status: Active Protocol: Document 12/02/20 11:13 [facility] (Rec: 12/02/20 11:29 [facility] [id number]) Cognitive Factors Limiting Selfcare Function Cognitive Ability Level of Alertness Alert,Confusional State Patient Orientation Name,Birthday,Situation Attention Span Ability Capable of Focused Attention, Capable of Sustained Attention Ability to Follow Commands Able to Follow One Step Commands with Increased Time, Able to Follow One Step Commands with Repetition Memory Description Short Term Impaired,Working Impaired Problem Solving Ability Unable to Identify Errors, Needs Assist to Identify Solutions Cognitive Comments Cognitive Assessment Comments Pt inconsistent with yes/no questions, information of prior level and having difficulty to understand and state his needs at this time. At this time pt not able to follow directions for [employer] as not able to comprehend the directions at this time. OT- Vision and Hearing OT- Hearing Assessment OT- Hearing Assessment WFL OT- Vision Assessment Visual Acuity Glasses For Reading M7 OT- IP Mobility and Balance Start: 12/02/20 11:13 Freq: Status: Active Protocol: Document 12/02/20 11:13 [facility] (Rec: 12/02/20 11:29 [facility] [id number]) OT-Transfer Assessment Sit to and From Stand Sit to and from Stand Minimal Assistance,Moderate Assistance Transfers Transfer Ability Minimal Assistance Technique Transfer Destination Chair Transfer Technique Stand Step Pivot Devices Transfer Assistive Devices Gait Belt,Front Wheeled Walker Comments Mobility Comments SUSANA to stand to FWW, assist more for balance as moving to the left with FWW. OT- Balance Assessment Sitting Balance and Reactions Static Sitting Balance Ability Good Dynamic Sitting Balance Ability Fair M8 OT- IP Objective Assessments Start: 12/02/20 11:13 Freq: Status: Active Protocol: Document 12/02/20 11:13 [facility] (Rec: 12/02/20 11:29 [facility] [id number]) OT Gross Range of Motion Upper Extremity Range of Motion Assessment Left Impaired ROM Impairments AROM shoulder flexion 0-100. OT Strength Upper Extremity Strength Assessment Left Impaired Comments Strength Comments LUE 3-/5 to 3+/5. OT- Coordination Assessment Upper Extremity Finger to Nose Test Left UE Impaired Comments Coordination Comments Pt having difficulty pinch and lateral grasp in order to assist to theresa his socks with his left hand. OT-Muscle Tone Assessment Muscle Tone WNL Yes OT Sensation Assessment Comments Summary Comments Pt not able to get the words out for where he was touched for light touch, but able to point to the correct locations of BUE at this time. M9 OT- IP Assessment and Plan Start: 12/02/20 11:13 Freq: Status: Active Protocol: Document 12/02/20 11:13 [facility] (Rec: 12/02/20 11:29 [facility] [id number]) OT Summary Assessment and Plan Potential Rehabilitation Potential Good Analytic Complexity at Evaluation Moderate Summary OT Impairments Range of Motion,Strength, Balance,Coordination, Functional Cognition, Functional Mobility,Self- Feeding,Grooming,Dressing, Toileting,Bathing,Toilet Transfers,Shower Transfers, Activity Tolerance Progress Towards Goals Slow Progress due to Medical Issues,Slow Progress due to Activity Tolerance,Slow Progress due to Cognition Assessment Summary Pt MOD complexity and here due to CVA and prior has had multiple CVA's. Unclear of pt 's prior level of function as pt having difficulty with expressive and receptive aphasia, classification case manager states to follow up details of prior level of function. Pt implies that he was completely independent prior. Pt is motivated to get better and do more for himself. Pt would greatly benefit from acute rehab. Goals Self-Feeding Goal Independent Grooming Goal Independent Dressing Goal Independent Toileting Goal Independent Bathing Goal Independent Toilet Transfer Goal Independent Shower Transfer Goal Independent Days to Meet Goals 25 Frequency of Treatment Frequency Of Treatment Once a Day Treatment Plan OT Treatment Plan ADL Training,Functional Cognition Training,Functional Mobility,Patient/Family Education,Discharge Planning Other Treatment Recommendations and Next Stand for grooming needs. Treatment Focus Discharge Recommendations OT Discharge Recommendations Acute Rehab Transportation Needs at Discharge Wheelchair/Cabulance
--- NOTE | 2020-12-02 11:05 | PT.IIE ---
Current Diagnoses Cerebral infarction, unspecified (12/01/20) Medical History (Last Reviewed 12/01/20 @ 15:50 by Russ Valdes DO) Anxiety COPD (chronic obstructive pulmonary disease) with emphysema CVA (cerebral vascular accident) Hypertension Physical Therapy Inpatient Evaluation/Re-Eval M1 PT/OT-IP Prior Functional Status Start: 12/02/20 10:15 Freq: NEEDED Status: Active Protocol: Document 12/02/20 11:05 AW (Rec: 12/02/20 11:46 AW [id number]) Medical Review Prior Functional Status Medical History Reviewed Yes Communication Pt has history of multiple CVA 's. Per EMR, he had CVA a few years ago with right sided deficits. No mention is made of speech impairments. Pt was recently hospitalized with acute R MCA CVA at [facility]. Per H&P, pt was there from -11/29/20 and had higher level of function at that time according to PT notes. He was admitted to on 12/01/20 after being found with increased confusion and speech difficulty. On evaluation, pt is aware of and frustrated by speech difficulty. He answers several questions non-sensically. Mobility and Gait Pt is a poor historian but states he was independent without AD prior to recent hospitalization. Pt reports my left foot flops now. Activities of Daily Living and IADL's Unknown PLOF. Social History Household Members family,children Living Arrangements House Number of Stairs To Enter/Railing? 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 Per EMR, he was living in [place] until recently but has moved closer to [place] for proximity to family. There is a POA listed on his contacts but the relationship is otherwise unclear. No other details are known about his current living situation as pt is a poor historian. Will defer to CLERK [employer] who is planning to contact the POA. M1 PT/OT-IP Prior Functional Status Start: 12/02/20 11:13 Freq: NEEDED Status: Active Protocol: Document 12/02/20 11:13 [facility] (Rec: 12/02/20 11:29 [facility] [id number]) Medical Review Prior Functional Status Communication Pt has had prior CVA therefore not sure of how it compares to now. Pt agreed that he is not able to get the words out, easily distracted and having trouble understanding. Mobility and Gait Pt is a poor historian unable to get a full understanding of his prior level of care for all of his needs. Activities of Daily Living and IADL's Pt is a poor historian unable to get a full understanding of his prior level of care for all of his needs. Social History Household Members family,children Living Arrangements House M2 PT-IP Current Condition Start: 12/02/20 10:15 Freq: NEEDED Status: Active Protocol: Document 12/02/20 11:05 AW (Rec: 12/02/20 11:46 AW [id number]) Physical Therapy Current Condition Current Condition Evaluation Date 12/02/20 Treatment Diagnosis acute/subacute CVA; left hemiparesis; impaired balance and mobility Onset Date 11/24/20 Precautions Other Precautions HTN M3 PT-IP Subjective Start: 12/02/20 10:15 Freq: NEEDED Status: Active Protocol: Document 12/02/20 11:05 AW (Rec: 12/02/20 11:46 AW [id number]) Subjective Physical Therapy Visit Type Type Initial Evaluation Visit Start Time 10:34 Visit Stop Time 11:05 Total Visit Minutes 31 Number of CONSTRUCTION PERSON Visits 0 Physical Therapy Visit Comments Patient Comments Pt is willing to participate with PT Therapy Pain Assessment Pain When Pain Assessed During Mobility Pain Present Pain Present Denied Pain M4 PT-IP Mobility and Gait Start: 12/02/20 10:15 Freq: NEEDED Status: Active Protocol: Document 12/02/20 11:05 AW (Rec: 12/02/20 11:46 AW [id number]) PT-Transfer Assessment Sit to and From Stand Sit to and from Stand Contact Guard Assistance,1 Person Assistance,Use of Upper Extremities Equipment Transfer Assistive Device Gait Belt,Front Wheeled Walker Orthotic/Prosthetic Devices or Brace: No Transfers Transfer Destination Chair Transfer Technique Stand Step Pivot Transfer Ability Level of Assist Minimal Assistance,1 Person Assistance,Use of Upper Extremities Comments Mobility Comments Pt was sitting up on the chair as PT arrived. He denied difficulty getting in and out of bed, refusing assessment. BP 173/85 HR 78. Pt was allowed to sit and repeat BP was 174/84 HR 81 after brief rest period. Pt stood from the chair CGA and used the FWW to ambulate in the room min A x 1. Gait was notable for poor coordination LLE resulting in mild ataxia. Pt transferred back to the chair min A x 1 where he was positioned with call light and all needs in reach. BP remained elevated 170's/80's. Chair alarm was on and curtain was left wide open for improved visibility from nurse station. Gait Assessment Gait Gait Assistance Required: Minimum Assistance,Moderate Assistance,1 Person Assist Distance (Feet) 20 Able to Maintain Weight Bearing Status Yes During Gait Assistive Devices Assistive Device Gait Belt,Front Wheeled Walker Orthotic/Prosthetic Devices or Brace: No Gait Deviations General Gait Pattern Ataxic,Decreased Stride Length ,Decreased Feet Clearance, Flexed Trunk,Lateral Trunk Lean,Step-to Gait Factors Limiting Gait Function Factors Limiting Gait Function Decreased Sensation,Decreased Strength,Difficulty Following Directions,Incoordination,Poor Balance,Poor Safety Awareness Comments Gait Comments Pt had difficulty coordinating gait with FWW, often picking it up to advance it with resulting lateral LOB requiring min assist to recover. Gait with no AD was also assessed but required increased assist. Stair Climbing Assessment Comments Stair Climbing Comments Not assessed. PT-Balance Assessment Sitting Balance and Reactions Static Sitting Balance Ability Good Dynamic Sitting Balance Ability Fair Standing Balance and Reactions Static Standing Balance Ability Poor Dynamic Standing Balance Ability Poor Device Used FWW Balance Tests Single Limb Standing RLE 2 sec; LLE unable Romberg moderate sway EO and NBOS Tandem Standing unable to assume position Comments Other Balance Tests/Deviations/Treatment Static balance challenged with : head turns and nods, requiring min assist due to LOB. M5 PT-IP Objective Assessments Start: 12/02/20 10:15 Freq: NEEDED Status: Active Protocol: Document 12/02/20 11:05 AW (Rec: 12/02/20 11:46 AW [id number]) Orientation Orientation/Cognition Level of Alertness Alert Orientation Name,Place,Situation Language Function Ability Expressive Aphasia,Receptive Aphasia,Word Finding Difficulties Safety Awareness Decreased Safety Awareness Memory Description Short Term Impaired Comments Pt answers many questions non- sensically but is aware of this. He communicates appreciation for assist and states he enjoys working with therapy. Gross Range of Motion Lower Extremity ROM Assessment Within Functional Limits Strength Lower Extremity Strength Assessment Bilaterally Impaired Comments Strength Comments LLE 3+/5 RLE 4/5 Coordination Assessment Gross Coordination Gross Coordination Impaired Assessment Finger to Nose Test Moderate Impairment Pronation/Supination Test Moderate Impairment Foot Tapping Test Minimal Impairment Coordination Comments Pt missed targets on EO finger to nose ~3 cm with LUE. Sensation Assessment Sensation Gross Sensation Left UE Impaired,Left LE Impaired Light Touch Impaired Proprioception (Position) Impaired Sensation Description Numbness Comments Sensation Comments Pt states he is able to feel light touch on his left side ( face, trunk, UE, LE) but it all feels slow compared with right side Muscle Tone Muscle Tone WNL Yes Comments Muscle Tone Comments Negative clonus at bilateral ankles and wrists Other Assessments Other Other Assessments Occulomotor exam grossly normal. Unable to complete vestibular exam but no signs of vestibular involvement. Visual clements appear intact. Left facial droop and drooling with pt reporting no awareness of drool. M6 PT-IP Treatment Start: 12/02/20 10:15 Freq: NEEDED Status: Active Protocol: Document 12/02/20 11:05 AW (Rec: 12/02/20 11:46 AW [id number]) Physical Therapy Treatment Education Education Provided Safety M7 PT-IP Assessment and Plan Start: 12/02/20 10:15 Freq: NEEDED Status: Active Protocol: Document 12/02/20 11:05 AW (Rec: 12/02/20 11:46 AW [id number]) PT Summary Assessment and Plan Potential Rehabilitation Potential Fair Status of Condition at Evaluation Evolving Summary Impairments Strength,Balance,Coordination, Sensation,Cognition,Bed Mobility,Transfers,Gait Assessment Summary Senthil is a 75 yo man with subacute/acute R MCA CVA involving centrum semiovale, gamble radiata, basal ganglia, and temporo-occipital junction. He was recently treated for acute CVA at [facility] but was discharged on 11/29/20. He is admitted to with apparent evolution of this infarct. His PLOF is unknown and pt is a poor historian who presents with expressive and possible receptive aphasia, left hemiparesis, left sensation disturbance, impaired coordination, and impaired balance all affecting his mobility independence. He is requiring min to mod assist to walk with FWW due to poor LLE control and ataxia. Pt is highly motivated and is an excellent candidate for acute inpatient rehab as he will require speech, occupational, and physical therapies and has the capacity to tolerate intense therapy. If pt unable to go to acute rehab, SNF rehab would be best option. Will continue to assess. Goals Bed Mobility Goal Independent Transfer Goal Contact Guard Assistance,Front Wheeled Walker Gait Goal Contact Guard Assistance,Front Wheel Walker Gait Distance 100 Other Goals LTG: improve ambulation to SBA with LRAD 200 feet Days to Meet Goals 10 Frequency of Treatment Frequency Of Treatment Twice a Day Treatment Plan Physical Therapy Treatment Plan Bed Mobility Training,Transfer Training,Gait Training, Therapeutic Exercise,Balance Retraining,Discharge Planning, Neuromuscular Re-ed, Coordination Retraining Other Recommendations and Next Treatment gait training with FWW; neuro Focus re-ed standing balance; monitor BP Precautions Other Precautions HTN Recommendations To Nursing Amount of Assist Needed 1 Person Assist Discharge Recommendations PT Discharge Recommendations SNF vs Acute Rehab Equipment Needed for Home Before defer to rehab setting Discharge Transportation Needs at Discharge Wheelchair/Cabulance
--- NOTE | 2020-12-02 11:47 | ST.OPIE ---
Visit Care Team Role Provider Type Kevon Martinez DO Emergency Provider Physician Referring Provider Specialty: Emergency Medicine Address: [address] [place] [address], [id number] Email: [email or web address] Admit Provider Physician Attending Provider Specialty: Internal Medicine Address: [address] [place] [address], [id number] Email: [email or web address] Speech-Language Pathology Initial Evaluation HAIR BLENDER Clinical Swallow Evaluation Start: 12/02/20 09:09 Freq: Status: Active Protocol: Document 12/02/20 09:09 JOSE (Rec: 12/02/20 09:18 JOSE [id number]) Clinical Swallow Evaluation Session Time Visit Start Time 09:00 Visit Stop Time 09:40 Total Visit Minutes [address] Russ Valdes Reason for Referral CVA Setting Assessment Location Acute Care Visit Type Note Type Initial evaluation Next Note Type Next Note Type Treatment Note Patient Information Identification Type Name,ID Card History Per H&P: Senthil Anderson is a 75 year old male without past medical history of hypertension, COPD, and multiple previous CVAs, most recently was admitted to [facility] and discharged on November 29 for an acute CVA of the R MCA. Patient's family reports that yesterday evening he developed more difficulty speaking and had worsening left-sided weakness. He was also noted to be more difficult to arouse and was quite a bit weaker than when he had left the hospital. He was also having more difficulty communicating, seemingly confused. He will be admitted to the ICU for close neurologic monitoring after this acute CVA while being placed on heparin infusion. BRAIN MRI: 1. Acute infarcts involving the right centrum semiovale, right gamble radiata, right putamen, right insula and the junction of the right temporal -occipital lobes. 2. Small subacute infarct involving the right occipital lobe. 3. Chronic lacunar infarcts involving the right frontal subcortical white matter. 4. No intracranial hemorrhage. 5. No abnormal intracranial mass or mass effect. Subjective Observations The pt was lying in bed watching TV upon HAIR BLENDER arrival. He pleasantly greeted HAIR BLENDER and reported his speech was 50/50 , ok if he spoke slowly but jumbled when he spoke quickly. He stated he understands others if one person speaks at a time but has difficulty tracking conversations with >1 speaker. He was agreeable to swallow evaluation. Repositioned upright in bed by NSG. Swallow eval interrupted by pt's urgent need for bowel movement , which the pt was clearly able to communicate verbally. Pt was assisted by Nsg then repositioned to chair. Reported by Patient Comment No complaints by pt. States he eats slowly and enjoys his food. No diet was ordered by MD pending HAIR BLENDER evaluation. Baseline Feeding Method Independent in self-feeding Patient Questionnaire No Objective Assessment Mental Status Alert,Responsive,Cooperative Oral Integrity Excessive saliva/Drooling Dentition Upper dentures/partials,Lower dentures/partials,Adequate denture or partial fitting Observation of Lips at Rest Left sided weakness/Drooping Pucker Reduced strength,Left sided weakness/drooping Lip Retraction Reduced range of motion,Left sided weakness/Drooping Alternating Pucker/Lip Retraction Reduced range of motion Tongue Function Moderate impairment Observations of Tongue at Rest Within normal limits Tongue Protrusion Deviates to the left Tongue Retraction Within normal limits Tongue Lateralization Reduced range of motion, Reduced strength Jaw Function Within normal limits Observations of Jaw at Rest Within normal limits Jaw Opening Reduced strength Jaw Closing Reduced strength Jaw Lateralization Within normal limits Hard/Soft Palate Function Within normal limits Observations of Hard/Soft Palate Within normal limits Gag Reflex Within normal limits Nasality Within normal limits Phonation Within normal limits Respiratory Sufficiency Within normal limits Food and Liquid Trials Position During Assessment Upright (90 degrees),In chair Liquids Trialed Thin Solids Trialed Puree,Dysphagia Mechanical, Mechanical Soft Administration Type Tea spoon,Cup single sip,Self- feeding Oral Impairment Moderately impaired Oral Phase Comments Moderate weakness of oral structures. Delayed a/p transfer results in early escape to pharynx and subsequent coughing. This improved with chin tuck during oral prep and swallow phases. Poor lip seal allows anterior escape, particularly of liquids and saliva. Pharyngeal Impairment Moderately impaired Pharyngeal Phase Comments Delayed swallow trigger and reduced airway closure resulted in laryngeal penetration and tracheal aspiration of dysphagia mechanical and mechanical soft textures. Cough response is strong. Fatigue/Endurance Endurance WNL Strategies Attempted Chin tuck Response/Comments Improved posterior oral containment and mildly reduced coughing. Increased anterior escape; pt able to self-manage with tissue. Findings Swallowing Function Oropharyngeal phase dysphagia Severity of Swallow Impairment Moderately impaired Contributing Factors to Swallow Reduced oral strength/ Impairment coordination/sensation, Impaired oral-pharyngeal transport,Delayed swallow initiation,Reduced laryngeal excursion,Impaired airway protection Prognosis Good Based on Cognitive status,Family support Comment The pt's speech was 90% intelligible in conversations. Mild garbled speech and phonemic and semantic paraphasias were observed in sentences of moderate length and complexity. Expressive communication skills sufficient for basic conversations when kept to simple sentences. Receptive language appears to be WFL in 1:1 conversation. The pt reports difficulty tracking conversation with >1 conversation partner at a time . The pt is aware of deficits and able to follow directions and strategies, both with swallowing and speech/language . He is cooperative and appears very motivated. He would be a good candidate for inpatient rehab. Impact on Safety and Functioning Risk for aspiration Recommendations Swallowing Treatment Yes Frequency Daily Duration over hospital stay Recommended Solids Puree Recommended Liquids Thin Other Recommendations Liquids by single sips only. Chin tuck during oral prep and swallow phases with all intake. Safety Precautions/Swallowing Reduce distractions,Remain Recommendations upright (90 degrees) during all oral intake,Needs verbal cues to use recommended strategies,Upright position at least 30 minutes after meals, Small bites and sips when eating,Slow rate; swallow between bites,No straw Medication Recommendations Whole in Carrier,Crushed in Carrier Discharge Recommendations Inpatient rehab facility Education Patient/Caregiver Education Described results of evaluation,Patient expressed understanding of evaluation, Patient expressed agreement with goals & treatment plans, Patient requires further education/training Goals Short-term Goals 1. The pt will participate in further evaluation of speech and language to guide POC. 2. The pt will use safe swallow strategies with min prompts to reduce risk of aspiration. Long-term Goals 1. The pt will demonstrate communication skills sufficient to effectively participate in conversations and decisions related to his medical care. 2. The pt will tolerate least restrictive diet to meet his nutrition and hydration needs.
[2020-12-02] MEDS: HYDRALAZINE 20 MG/ML VIAL 10 MG IV (12:27)
--- NOTE | 2020-12-02 13:10 | P.PN_ITS ---
Subjective Subjective Date Patient Seen: 12/02/20 Interval history: Patient is a 75-year-old male who was admitted to the hospital for an acute right MCA CVA. Patient was placed on IV heparin. He continues to have aphasia, and dysarthria. Patient times appears to be confused and does not answer questions appropriately. Despite that he has improvement in strength on the left arm and left leg. He will continue to be seen by PT OT and speech pathology. Exam Vital Signs (past 8 hours): - 12/02/20 05:15 12/02/20 05:30 12/02/20 05:45 Temperature Pulse Rate 79 79 79 Respiratory Rate 19 19 14 Blood Pressure Pulse Oximetry 96 95 95 12/02/20 06:00 12/02/20 08:00 12/02/20 08:08 Temperature 97.5 F L Pulse Rate 79 82 79 Respiratory Rate 18 24 16 Blood Pressure 153/78 H 153/78 H Pulse Oximetry 96 97 98 12/02/20 11:27 12/02/20 11:45 12/02/20 12:27 Temperature 97.9 F Pulse Rate 75 74 79 Respiratory Rate 22 19 Blood Pressure 174/84 H 175/86 H 175/86 H Pulse Oximetry 96 97 Oxygen Delivery Method Room Air Oxygen Flow Rate 0 Narrative Exam Narrative: Elderly male in no obvious distress HEENT: Normocephalic atraumatic, extraocular muscles are intact, visual clements are intact to confrontation, there is a left facial droop, Lungs: Clear to auscultation Cardiac exam: Regular rate and rhythm normal S1-S2 with a 2/6 systolic ejection murmur Abdomen: Soft nontender nondistended Extremities: No edema Neuro exam: NIH stroke scale score of 7, Objective Labs Result Diagrams: 12/02/20 04:50 12/01/20 08:27 Labs: Laboratory Results - last 24 hr 12/01/20 12/01/20 12/02/20 15:00 22:58 04:50 Hgb Hct Plt Count 263 APTT 58 H D Nasal Screen MRSA (PCR) Negative for mrsa 12/02/20 12/02/20 04:50 04:50 Hgb 13.4 L Hct 38.3 L Plt Count APTT 76 H* D Nasal Screen [facility] (PCR) [facility] Medical History Anxiety COPD (chronic obstructive pulmonary disease) with emphysema CVA (cerebral vascular accident) Hypertension Social History household members: family and children lives independently: Yes Smoking Status: Former smoker Assessment & Plan Assessment & Plan narrative: Acute CVA, present on admission - Patient was admitted to [facility] 11/24-11/29 for a R MCA CVA. NIHSS was 3 on that admission and PT notes reviewed show much more function compared to his arrival. He has worsened L sided weakness - MRI showing multiple new acute right infarcts with a right MCA occlusion. Tele stroke services were consulted in the emergency room, and I discussed the recommendations myself with Dr. Pradhan, the neurologist at [facility]. Thankfully, Dr. Pradhan had been involved in the care with this patient at [facility] and was also able to review the prior imaging. She was concerned for stump syndrome, and recommended cessation of the patient's aspirin and Plavix and instead initiation of a heparin drip for 48 hours followed by repeat head CT with then subsequent initiation of Coumadin for approximately 30 days. She also possibly was considering a bypass surgery, however this is rarely done. Family elected to stay at [facility], despite not having neurology or neuro surgery if there were to be any complications arising from treating him with heparin, and they understood these risks. They also reiterated that they do not and the patient would not want any interventions done were he to have a bleed. Patient was able to communicate somewhat, he is currently DNR, and stated to me he would not want a feeding tube. - NIHSS in the ER 10,today NIHSS is 7, ICU status for q2 hour neurochecks while on heparin infusion and high risk of bleeding. - consult PT/OT after heparin infusion. - Speech therapy ordered - Telestroke recommended rapid follow up if discharged, with either [facility] in [place] or Stroke neurologist associated with [facility] or [facility] Stroke Neurologists if family willing. - Repeat CT after 48 hours (12/03 4pm) on heparin infusion, continue monitoring ptt q6 hours. - Start Coumadin if no bleeding on follow up CT imaging. - stop asa and plavix per telestroke. -echocardiogram was recently performed at [facility] about a week ago, this showed an EF of 60-65%, grade 1 diastolic dysfunction, mild left ventricular hypertrophy, and a negative bubble study. - Recommend Acute Rehabilitation evaluation 2. HTN - permissive hypertension allowed, but recommended by telestroke SBP <160. Will order home medications to start tomorrow evening. -resume usual medications as blood pressure is elevated and patient on IV hepa rin 3. COPD, without acute exacerbation. - RT eval and treat, replace home fluticasone with budesonide BID, albuterol prn ordered. 4. Chronic diastolic heart failure - patient with TTE at [facility] showing grade I diastolic heart failure. Does not appear to be acutely overloaded. Continue home antihypertensives as noted above. Code: DNR, surrogate decision maker is Lilly BACON VTE Deep Vein Thrombosis/Pulmonary Embolism Present on Admission: No
[2020-12-02] MEDS: AMLODIPINE 5 MG TABLET PO (13:42)
--- NOTE | 2020-12-02 14:20 | PT.IPTN ---
Current Diagnoses Cerebral infarction, unspecified (12/01/20) Physical Therapy Treatment Note M2 PT-IP Current Condition Start: 12/02/20 10:15 Freq: NEEDED Status: Active Protocol: Document 12/02/20 11:05 AW (Rec: 12/02/20 11:46 AW [id number]) Physical Therapy Current Condition Current Condition Evaluation Date 12/02/20 Treatment Diagnosis acute/subacute CVA; left hemiparesis; impaired balance and mobility Onset Date 11/24/20 Precautions Other Precautions HTN M3 PT-IP Subjective Start: 12/02/20 10:15 Freq: NEEDED Status: Active Protocol: Document 12/02/20 14:20 AB (Rec: 12/02/20 15:22 AB [id number]) Subjective Physical Therapy Visit Type Type Treatment Note Visit Start Time 14:20 Visit Stop Time 14:40 Total Visit Minutes 20 Number of WIRE WEAVER HELPER Visits 0 Physical Therapy Visit Comments Patient Comments pt agreeable to do PT Therapy Pain Assessment Pain Present Pain Present Denied Pain M4 PT-IP Mobility and Gait Start: 12/02/20 10:15 Freq: NEEDED Status: Active Protocol: Document 12/02/20 14:20 AB (Rec: 12/02/20 15:22 AB [id number]) PT-Bed Mobility Assessment Supine to Sit Supine to Sit Standby Assistance,Head of Bed Elevated Sit to Supine Sit to Supine Head of Bed Elevated PT-Transfer Assessment Sit to and From Stand Sit to and from Stand Contact Guard Assistance,1 Person Assistance,Use of Upper Extremities Equipment Transfer Assistive Device Gait Belt,Front Wheeled Walker Orthotic/Prosthetic Devices or Brace: No Gait Assessment Gait Gait Assistance Required: Contact Guard Assist,Minimum Assistance Distance (Feet) 40 Able to Maintain Weight Bearing Status Yes During Gait Assistive Devices Assistive Device Gait Belt,Front Wheeled Walker Orthotic/Prosthetic Devices or Brace: No Gait Deviations General Gait Pattern Decreased Stride Length, Decreased Feet Clearance Factors Limiting Gait Function Factors Limiting Gait Function Decreased Activity Tolerance, Decreased Strength,Difficulty Following Directions,Poor Balance,Poor Safety Awareness Comments Gait Comments pt completed supine to sit SBA with HOB elevated. cued pt for safety and to slow down. pt is able to answer questions appropriately but with garbled words but at times is response is nonsensical. pt was able to sit on EOB SBA. completed sit to stand CGA and ambulated in room using FWW CGA to min A ~ 40 ft and cues. pt tends to run into things and needs assistance for FWW manuevering. pt requested to go back to bed and completed sit to supine SBA. positioned pt on bed. call light and table placed within reach. M5 PT-IP Objective Assessments Start: 12/02/20 10:15 Freq: NEEDED Status: Active Protocol: Document 12/02/20 11:05 AW (Rec: 12/02/20 11:46 AW [id number]) Orientation Orientation/Cognition Level of Alertness Alert Orientation Name,Place,Situation Language Function Ability Expressive Aphasia,Receptive Aphasia,Word Finding Difficulties Safety Awareness Decreased Safety Awareness Memory Description Short Term Impaired Comments Pt answers many questions non- sensically but is aware of this. He communicates appreciation for assist and states he enjoys working with therapy. Gross Range of Motion Lower Extremity ROM Assessment Within Functional Limits Strength Lower Extremity Strength Assessment Bilaterally Impaired Comments Strength Comments LLE 3+/5 RLE 4/5 Coordination Assessment Gross Coordination Gross Coordination Impaired Assessment Finger to Nose Test Moderate Impairment Pronation/Supination Test Moderate Impairment Foot Tapping Test Minimal Impairment Coordination Comments Pt missed targets on EO finger to nose ~3 cm with LUE. Sensation Assessment Sensation Gross Sensation Left UE Impaired,Left LE Impaired Light Touch Impaired Proprioception (Position) Impaired Sensation Description Numbness Comments Sensation Comments Pt states he is able to feel light touch on his left side ( face, trunk, UE, LE) but it all feels slow compared with right side Muscle Tone Muscle Tone WNL Yes Comments Muscle Tone Comments Negative clonus at bilateral ankles and wrists Other Assessments Other Other Assessments Occulomotor exam grossly normal. Unable to complete vestibular exam but no signs of vestibular involvement. Visual clements appear intact. Left facial droop and drooling with pt reporting no awareness of drool. M6 PT-IP Treatment Start: 12/02/20 10:15 Freq: NEEDED Status: Active Protocol: Document 12/02/20 14:20 AB (Rec: 12/02/20 15:22 AB [id number]) Physical Therapy Treatment Education Education Provided Safety M7 PT-IP Assessment and Plan Start: 12/02/20 10:15 Freq: NEEDED Status: Active Protocol: Document 12/02/20 14:20 AB (Rec: 12/02/20 15:22 AB [id number]) PT Summary Assessment and Plan Potential Rehabilitation Potential Good Summary Impairments Pain,ROM,Strength,Balance, Coordination,Sensation,Tone, Cognition,Bed Mobility, Transfers,Gait,Activity Tolerance Progress Towards Goals Slow Progress due to Medical Issues Assessment Summary pt requirng CGA to min A with ambulation using FWW and has decrease safety awareness requiring cues. pt will benefit from acute rehab to improve mobility independence and safety. Goals Bed Mobility Goal Independent Transfer Goal Contact Guard Assistance,Front Wheeled Walker Gait Goal Contact Guard Assistance,Front Wheel Walker Gait Distance 100 Other Goals LTG: improve ambulation to SBA with LRAD 200 feet Days to Meet Goals 10 Frequency of Treatment Frequency Of Treatment Twice a Day Treatment Plan Physical Therapy Treatment Plan Bed Mobility Training,Transfer Training,Gait Training, Therapeutic Exercise,Balance Retraining,Discharge Planning, Neuromuscular Re-ed, Coordination Retraining Recommendations To Nursing Amount of Assist Needed 1 Person Assist Discharge Recommendations PT Discharge Recommendations Acute Rehab Transportation Needs at Discharge Wheelchair/Cabulance
[2020-12-02] MEDS: HEPARIN DRIP 25,000 UNIT/500 ML IV.SOLN 22 UNIT IV (16:10)
--- NOTE | 2020-12-02 16:30 | CM.DANOTE ---
DCP ASSESSMENT: Patient is a 75 year old-male admitted to the hospital for acute CVA. Primary Payer is Medicare and for Life. LOCOMOTIVE ELECTRICIAN and LOCOMOTIVE ELECTRICIAN Student met with patient and his sister Lilly . Education regarding social workers role in D/C planning. Contact with [facility] has been made, clinicals faxed. Provided Lilly with VA contacts Patient Advocate and General number as patient may have VA benefits he can use. Discharge Planning/Care Management CM Discharge Assessment Start: 12/02/20 16:26 Freq: Status: Active Protocol: Document 12/02/20 16:26 AL (Rec: 12/02/20 16:30 AL [id number]) Discharge Planning Assessment Assigned Supervisor Dental Laboratory ROSI Perez Student Contact Information Sister Hughes Advance Directives? Yes Advance Directives on File Yes History Provided By Patient,Family Member,Medical Record Prior Living Arrangements House Household Members family,children Type of transporation used prior to Relies on Others admit Independent with ADL's Yes Is patient alert and oriented? Yes Caregiver for Another No Patient/Family Preference Penitentiary Facility Comment Pending being recieved at either [facility] Barriers to Discharge No Discharge Plan Penitentiary Facility Referrals Initiated Penitentiary Additional Comment Referals in progress If patient plan is SNF: Has PASSR been No completed? SNF/HH Preference [facility] Has Agency SNF been contacted Yes Whiteboard Updated in Patient Room with Yes name and ext. # of Supervisor Dental Laboratory Review Status In Process ROSI Guerra MSW Student
--- NOTE | 2020-12-02 19:05 | PC.NURSE ---
Evening shift note: Pt A/O x1, alert and recognizes sister, knows his name, able to answer some questions like how are you and Do you need anything? with appropriate answers, Heparin gtt infusing at 1100units/hr, see flow sheet, no s/s of bleeding. States that he has pain in his abdomen area (r/t his fall with this stroke), provider ordered tylenol, see emar for documentation. 1 person assist to bathroom, does need some cues for appropriate bathroom behavior (wiping, pulling up brief), has been incontinent of urine x 2. Bed low and locked, alarm on, call light within reach, able to us call light appropriately, will continue to monitor.
[2020-12-02] MEDS: ACETAMINOPHEN 325 MG TABLET 650 MG PO (20:55)
[2020-12-02] MEDS: AMITRIPTYLINE 25 MG TABLET PO (20:55)
[2020-12-02] MEDS: ATORVASTATIN 20 MG TABLET 80 MG PO (20:55)
[2020-12-03] VITALS (7 sets, daily range): BP systolic 150–169; BP diastolic 71–100; PULSE 66–79; RESP 14–21; TEMP 36.2–36.9; O2SAT 96–100
[2020-12-03 05:11] LABS: Hematocrit 36.9 % (41-53); Hemoglobin 12.8 g/dL (13.5-17.5)
[2020-12-03 05:18] LABS: Platelet Count 268 X10^3/uL (150-400)
[2020-12-03 05:28] LABS: PTT Partial Thromboplastin Tim 95 SECONDS (26.4-36.2)
--- NOTE | 2020-12-03 07:22 | DI.CT.S_ITS ---
PROCEDURE: CT HEAD/BRAIN WO CON INDICATIONS: confusion TECHNIQUE: Noncontrast 4.5 mm thick angled axial sections acquired from the foramen magnum to the vertex, with coronal and sagittal reformats. For radiation dose reduction, the following was used: automated exposure control, adjustment of mA and/or kV according to patient size. COMPARISON: [facility], MR, MR BRAIN WITHOUT CONTRAST, 07/31/2019, 8:25. [facility], CT, CT ANGIO HEAD AND NECK, 07/31/2019, 2:40. [facility], CT, CT HEAD WITHOUT CONTRAST, 07/31/2019, 0:32. FINDINGS: Image quality: Excellent. CSF spaces: Basal cisterns are patent. No extra-axial fluid collections. The ventricles are symmetric in size and shape. Brain: Hypodensity noted at the junction of the right right parietal lobe at the parietal-temporal lobes (angular gyrus) concerning for subacute infarct. No intracranial bleeds or masses. There is cerebral volume loss for age, with resultant ventricular and sulcal prominence. There are periventricular and deep white matter chronic small vessel ischemic changes. Small chronic lacunar infarcts noted in the basal ganglia and the right gamble radiata. There is intracranial internal carotid artery atherosclerosis. Skull and face: Calvarium and visualized facial bones appear intact, without suspicious lesions. Sinuses: Visualized sinuses and mastoids are clear. IMPRESSION: 1. Probable subacute right parietal infarct. Recommend MRI of the brain for further evaluation when clinically feasible. 2. Small chronic bilateral basal ganglia and right gamble radiata lacunar infarcts. 3. No intracranial hemorrhage. Dictated by: Caitlin Faust MD, PhD on 12/03/2020 at 8:04 Approved by: Caitlin Faust MD, PhD on 12/03/2020 at 8:09
[2020-12-03] MEDS: AMLODIPINE 5 MG TABLET 10 MG PO (08:59)
[2020-12-03] MEDS: SERTRALINE 50 MG TABLET PO (08:59)
[2020-12-03] MEDS: lisinopriL 20 MG TABLET PO (08:59)
[2020-12-03] MEDS: SODIUM CHLORIDE 0.9% FLUSH 10 ML IV ×2 (09:00→20:42)
--- NOTE | 2020-12-03 10:30 | ST.IPDYTX ---
Visit Care Team Role Provider Type Kevon Martinez DO Emergency Provider Physician Referring Provider Specialty: Emergency Medicine Address: [address] [place] [address], [id number] Email: [email or web address] DO Admit Provider Physician Attending Provider Specialty: Internal Medicine Address: [address] [place] [address], [id number] Email: [email or web address] EARLY MORNING BABYSITTER Dysphagia Treatment E[employer]LY MORNING BABYSITTER Dysphagia Treatment Start: 12/03/20 14:37 Freq: Status: Active Protocol: Document 12/03/20 14:38 JOSE (Rec: 12/03/20 15:05 JOSE [id number]) Dysphagia Treatment Session Time Visit Start Time 09:40 Visit Stop Time 10:20 Total Visit Minutes 30 Setting Assessment Location Acute Care Visit Type Note Type Treatment Note Next Note Type Next Note Type Treatment Note Patient Information Identification Type Name,ID Card Subjective Observations The pt was asleep upon EARLY MORNING BABYSITTER's arrival and aroused to voice. He was agreeable to dysphagia tx. He was given his upper dentures, which were very loose, floating in his mouth when he attempted to talk. He stated they fit well with adhesive, which he uses daily but is not with him. None was available through the hospital . Nsg called the pt's sister, who stated she would bring adhesive this afternoon. Dysphagia trials were administered without the pt's upper dentures. The pt stated his speech was hit and miss, better when he takes his time but gets jumbled when he goes too fast, which he finds frustrating. He continues to struggle to follow/comprehen fast speech from others. Treatment Liquids Trialed Thin Solids Trialed Puree,Dysphagia Mechanical Administration Type Controlled Cup Sip,Cup Consecutive Sips,Straw,Self- Feeding Oral Strategies Upright at 90 degrees Pharyngeal Strategies Sitting Upright (90 deg),Chin Tuck,Small Bites and Sips Treatment Activities Pt tolerated all trials with occasional mild wet voice, which cleared with subsequent swallow. Occasional mild throat clearing also observed. No cough was noted. Without dentures, mastication of dysphagia mechanical texture was extended with accumulation of solids at left side of mouth. When asked where the food was, the pt identified the left side, indicating awareness with extended prep phase vs pocketing. Pt's oral cavity was clear upon final swallow of solids. Pooling of saliva was also noted, greater at left side, but did not escape past lips. The pt's speech intelligibility was mildly reduced, which appeared to be secondary to absence of dentures. At start of the session, the pt's language was confused and littered with semantic paraphasias. Trained pt in communication strategies including reduced rate of speech and speaking in short, simple sentences whenever possible. The pt agreed. With reduced rate, the pt expressed several sentences of moderate complexity in structure and content, including appropriate use of an idiom, which were 100% comprehensible and accurately constructed. As the pt attempted to speak at greater length about topics and when he increased his rate of speech, intelligibility/ comprehensibility declined to ~60%. The pt's responses to questions and comments appeared to be appropriate, when comprehensible, and the pt followed simple directions. All communication toward the pt by the EARLY MORNING BABYSITTER was presented at moderately slow rate and restricted to simple sentences to aid in auditory comprehension. Assessment Patient Response to Treatment Good Rehab Potential Good Assessment of Improvement Improved swallow safety seen today with reduced coughing. Occasional wet voice and throat clearing indicates ongoing reduced airway protection, placing the pt at mild-moderate risk of aspiration. Diet was advanced to dysphagia mechanical. It is anticipated that additional advancement may be achieved when the pt is able to eat with his dentures in and as he gains more strength. 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 This is significantly improved when the pt reduces rate of speech and speaks in simple sentences, at which point he is able to use language near normal limits. 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 Diet Recommendations Recommendations Upgrade Diet Order Liquids Order Thin Diet Order Dysphagia Mechanical Medication Recommendations Whole in Carrier,Crushed in Carrier Additional Dietary Needs Reminders to Use Strategies Aspiration Precautions Recommended Precautions Upright at 90 Degrees,Small Bites/Sips,Chin Tuck Treatment Plan Placement Recommendation after Discharge Residential Facility, Inpatient Rehab Facility Appropriate for Continued Therapy Yes Therapy Recommendations 1. The pt will participate in further evaluation of speech and language to guide POC. 2. The pt will use safe swallow strategies with min prompts to reduce risk of aspiration. Dysphagia Goals 1. The pt will demonstrate communication skills sufficient to effectively participate in conversations and decisions related to his medical care. 2. The pt will tolerate least restrictive diet to meet his nutrition and hydration needs. Follow Up Plan Daily tx over hospital stay
--- NOTE | 2020-12-03 11:00 | OT.IP.TRT ---
Current Diagnoses Cerebral infarction, unspecified (12/01/20) Occupational Therapy Treatment Note M2 OT-IP Current Condition Start: 12/02/20 11:13 Freq: Status: Active Protocol: Document 12/02/20 11:13 [facility] (Rec: 12/02/20 11:29 [facility] [id number]) Occupational Therapy Current Condition Current Condition Evaluation Date 12/02/20 Treatment Diagnosis CVA Diagnosis Onset Date 12/01/20 M3 OT- IP Subjective and Pain Start: 12/02/20 11:13 Freq: Status: Active Protocol: Document 12/03/20 11:03 [facility] (Rec: 12/03/20 11:20 [facility] [id number]) OT- Subjective Occupational Therapy Visit Type Type Treatment Note Visit Start Time 10:20 Visit Stop Time 11:00 Total Visit Minutes 40 Occupational Therapy Visit Comments Patient Comments After encouragement , pt agreed to shower. Patient/Caregiver Goals Pt agreed would be best for pt to go to acute rehab. OT Pain Assessment Pain When Pain Assessed At Rest Pain Present Pain Present Denied Pain M4 OT- IP ADL's Start: 12/02/20 11:13 Freq: Status: Active Protocol: Document 12/03/20 11:03 [facility] (Rec: 12/03/20 11:20 [facility] [id number]) OT [id number] Comments OT Self-Feeding Comments Not at meal time. Noted left facial droop and pt needing cues to control his saliva. OT ADL-Grooming General Evaluation Grooming Ability Standby Assistance Areas Needing Assistance Retrieving/Set-up of Grooming Items Comments OT Grooming Comments While standing with FWW in front of the sink. OT ADL-Dressing General Eval Lower Body Dressing Ability Moderate Assistance,Maximum Assistance Comments OT Dressing Comments Pt needing assist to doff brief over his hips as not able to grasp with his left and to hold the brief. Pt got too tired and needing assist to theresa his left sock. OT ADL-Toileting Comments OT Toileting Comments Pt not needing to use the toilet at this time. OT ADL-Bathing General Evaluation Bathing Ability Moderate Assistance,Maximal Assistance Areas Needing Assistance Wash/Dry Back,Wash/Dry Perineal Area,Wash/Dry Lower Extremities Devices Bathing Equipment Hand Held Shower Sprayer, Shower Chair with Arms,Grab Bars Comments OT Bathing Comments Pt needing assist for his back , feet, and hair while seated. Pt needing CGA for balnace and heavy use of grab bars while standing to do his pericare needs, pt needing assist for completeness. M6 OT- IP Functional Cognition Start: 12/02/20 11:13 Freq: Status: Active Protocol: Document 12/03/20 11:03 [facility] (Rec: 12/03/20 11:20 [facility] [id number]) Cognitive Factors Limiting Selfcare Function Cognitive Ability Level of Alertness Alert Patient Orientation Name,Birthday,Situation Attention Span Ability Capable of Focused Attention, Capable of Sustained Attention Ability to Follow Commands Able to Follow One Step Commands with Increased Time, Able to Follow One Step Commands with Repetition Memory Description Short Term Impaired,Working Impaired Safety Awareness Underestimates Need for Assistance Problem Solving Ability Unable to Identify Errors, Needs Assist to Identify Solutions Cognitive Comments Cognitive Assessment Comments MAX vc for safety awareness. Pt trying to stand and take off his brief, instead of sitting down. Pt trying to wash his feet while standing. Pt decreased insight that it would be safer to be seated for his ADL needs at this time . Pt needing MAX cues to help sequence through task of shower as perseverating on washing his legs and needing cues to wash his chest, underarms, and pericare needs. Pt needing vc to push up from surface sitting on versus grabbing the FWW. M7 OT- IP Mobility and Balance Start: 12/02/20 11:13 Freq: Status: Active Protocol: Document 12/03/20 11:03 [facility] (Rec: 12/03/20 11:20 [facility] [id number]) OT- Bed Mobility Assessment Rolling Type of Rolling Roll to Left Supine to Sit Supine to Sit Assist Standby Assistance OT-Transfer Assessment Sit to and From Stand Sit to and from Stand Contact Guard Assistance Transfers Transfer Ability Contact Guard Assistance, Moderate Assistance Technique Transfer Destination Bed,Chair,Shower Stall Transfer Technique Stand Step Pivot Devices Transfer Assistive Devices Gait Belt,Front Wheeled Walker OT- Gait Assessment Comments Gait Ability Comments CGA with FWW. Pt trying to take a few step to get into the shower and needing MODA for balance in addition to use of grab bar to help[ steady himself. OT- Balance Assessment Sitting Balance and Reactions Static Sitting Balance Ability Good Dynamic Sitting Balance Ability Fair Standing Balance and Reactions Dynamic Standing Balance Ability Poor Comments Other Balance Tests/Deviations/Treatment Pt aware that his balance is : not as good as states prior did not us any device for ambulation needs. . M9 OT- IP Assessment and Plan Start: 12/02/20 11:13 Freq: Status: Active Protocol: Document 12/03/20 11:03 [facility] (Rec: 12/03/20 11:20 [facility] [id number]) OT Summary Assessment and Plan Potential Rehabilitation Potential Good Analytic Complexity at Evaluation Moderate Summary OT Impairments Range of Motion,Strength, Balance,Coordination, Functional Cognition, Functional Mobility,Self- Feeding,Grooming,Dressing, Toileting,Bathing,Toilet Transfers,Shower Transfers, Activity Tolerance Progress Towards Goals Slow Progress due to Medical Issues,Slow Progress due to Activity Tolerance,Slow Progress due to Cognition Assessment Summary Pt able to participate in showering and still having difficulty with decreased FMS, neglect for left side, balance, getting the words out and for safety awareness. Pt is pleasant and cooperative and would greatly benefit from acute rehab. Pt doing better today with activity tolerance therefore to increase pt frequency to twice a day for OT. Goals Self-Feeding Goal Independent Grooming Goal Independent Dressing Goal Independent Toileting Goal Independent Bathing Goal Independent Toilet Transfer Goal Independent Shower Transfer Goal Independent Days to Meet Goals 24 Frequency of Treatment Frequency Of Treatment Twice a Day Treatment Plan OT Treatment Plan ADL Training,Functional Cognition Training,Functional Mobility,Patient/Family Education,Discharge Planning Other Treatment Recommendations and Next FMS with left hand. Treatment Focus Discharge Recommendations OT Discharge Recommendations Acute Rehab Transportation Needs at Discharge Wheelchair/Cabulance
--- NOTE | 2020-12-03 11:38 | PT.IPTN ---
Current Diagnoses Cerebral infarction, unspecified (12/01/20) Physical Therapy Treatment Note M2 PT-IP Current Condition Start: 12/02/20 10:15 Freq: NEEDED Status: Active Protocol: Document 12/02/20 11:05 AW (Rec: 12/02/20 11:46 AW [id number]) Physical Therapy Current Condition Current Condition Evaluation Date 12/02/20 Treatment Diagnosis acute/subacute CVA; left hemiparesis; impaired balance and mobility Onset Date 11/24/20 Precautions Other Precautions HTN M3 PT-IP Subjective Start: 12/02/20 10:15 Freq: NEEDED Status: Active Protocol: Document 12/03/20 11:22 SP (Rec: 12/03/20 13:56 SP [id number]) Subjective Physical Therapy Visit Type Type Treatment Note Visit Start Time 11:22 Visit Stop Time 11:38 Total Visit Minutes 16 Notes Vitals taken during tx: seated pre mobility BP 147/88, HR 84 99% on RA; post mobility seated BP 163/80 HR 79 97% on RA. Number of LITHOGRAPHIC PLATE MAKER APPRENTICE Visits 1 Physical Therapy Visit Comments Patient Comments pt agreeable to working with PT. Therapy Pain Assessment Pain Present Pain Present Denied Pain M4 PT-IP Mobility and Gait Start: 12/02/20 10:15 Freq: NEEDED Status: Active Protocol: Document 12/03/20 11:22 SP (Rec: 12/03/20 13:56 SP [id number]) PT-Transfer Assessment Sit to and From Stand Sit to and from Stand Contact Guard Assistance,1 Person Assistance,Use of Upper Extremities Equipment Transfer Assistive Device Gait Belt,Front Wheeled Walker Orthotic/Prosthetic Devices or Brace: No Transfers Transfer Destination Chair Transfer Technique pt ambulated using fWW Transfer Ability Level of Assist Contact Guard Assistance,1 Person Assistance,Use of Upper Extremities Comments Mobility Comments Pt was sitting up on the chair as PT arrived. He denied difficulty getting in and out of bed, refusing assessment. See vitals taken above. Sit> stand CGA using fWW max cuing for proper hand placement from chair arms to stand and reaching back pre sitting for safety. Pt ambulated further distance into hallway around nursign station and back, 1 stop stand rest break due to decreased strength and activitiy tolerance, light increased in breath rate. Pt required cuing for centering self using fWW for safety and hand placement for slow descent into chair with no carry over. Pt would benefit from skilled acute rehab for improve strength, safety education, not return to baseline independence. Will continue to assess progress. Gait Assessment Gait Gait Assistance Required: Contact Guard Assist,1 Person Assist Distance (Feet) 145 Able to Maintain Weight Bearing Status Yes During Gait Assistive Devices Assistive Device Gait Belt,Front Wheeled Walker Orthotic/Prosthetic Devices or Brace: No Gait Deviations General Gait Pattern Decreased Stride Length, Decreased Feet Clearance, Flexed Trunk Factors Limiting Gait Function Factors Limiting Gait Function Decreased Activity Tolerance, Decreased Strength,Difficulty Following Directions,Poor Balance,Poor Safety Awareness Comments Gait Comments Pt step over step patterning using FWW CGA with repeated cuing for directioning turns in hallway, at times body close to fWW for safety. LITHOGRAPHIC PLATE MAKER APPRENTICE managed IV pole. Pt required 1 stop rest during 145 ft distance due to tiring and decreased strength/activity tolerance. Stair Climbing Assessment Comments Stair Climbing Comments Not assessed. PT-Balance Assessment Sitting Balance and Reactions Static Sitting Balance Ability Good Dynamic Sitting Balance Ability Good Standing Balance and Reactions Static Standing Balance Ability Good Dynamic Standing Balance Ability Fair Device Used FWW M5 PT-IP Objective Assessments Start: 12/02/20 10:15 Freq: NEEDED Status: Active Protocol: Document 12/02/20 11:05 AW (Rec: 12/02/20 11:46 AW [id number]) Orientation Orientation/Cognition Level of Alertness Alert Orientation Name,Place,Situation Language Function Ability Expressive Aphasia,Receptive Aphasia,Word Finding Difficulties Safety Awareness Decreased Safety Awareness Memory Description Short Term Impaired Comments Pt answers many questions non- sensically but is aware of this. He communicates appreciation for assist and states he enjoys working with therapy. Gross Range of Motion Lower Extremity ROM Assessment Within Functional Limits Strength Lower Extremity Strength Assessment Bilaterally Impaired Comments Strength Comments LLE 3+/5 RLE 4/5 Coordination Assessment Gross Coordination Gross Coordination Impaired Assessment Finger to Nose Test Moderate Impairment Pronation/Supination Test Moderate Impairment Foot Tapping Test Minimal Impairment Coordination Comments Pt missed targets on EO finger to nose ~3 cm with LUE. Sensation Assessment Sensation Gross Sensation Left UE Impaired,Left LE Impaired Light Touch Impaired Proprioception (Position) Impaired Sensation Description Numbness Comments Sensation Comments Pt states he is able to feel light touch on his left side ( face, trunk, UE, LE) but it all feels slow compared with right side Muscle Tone Muscle Tone WNL Yes Comments Muscle Tone Comments Negative clonus at bilateral ankles and wrists Other Assessments Other Other Assessments Occulomotor exam grossly normal. Unable to complete vestibular exam but no signs of vestibular involvement. Visual clements appear intact. Left facial droop and drooling with pt reporting no awareness of drool. M6 PT-IP Treatment Start: 12/02/20 10:15 Freq: NEEDED Status: Active Protocol: Document 12/03/20 11:22 SP (Rec: 12/03/20 13:56 SP [id number]) Physical Therapy Treatment Education Education Provided Safety M7 PT-IP Assessment and Plan Start: 12/02/20 10:15 Freq: NEEDED Status: Active Protocol: Document 12/03/20 11:22 SP (Rec: 12/03/20 13:56 SP [id number]) PT Summary Assessment and Plan Potential Rehabilitation Potential Good Status of Condition at Evaluation Evolving Summary Impairments Pain,ROM,Strength,Balance, Coordination,Sensation,Tone, Cognition,Bed Mobility, Transfers,Gait,Activity Tolerance Progress Towards Goals Progressing Toward Goals,Slow Progress due to Medical Issues ,Slow Progress due to Activity Tolerance Assessment Summary Pt requirin CGA during all mobility using FWW, decrease safety awareness requiring cuing. LITHOGRAPHIC PLATE MAKER APPRENTICE continue recommending pt will benefit from acute rehab to improve mobility independence and safety. Goals Bed Mobility Goal Independent Transfer Goal Contact Guard Assistance,Front Wheeled Walker Gait Goal Contact Guard Assistance,Front Wheel Walker Gait Distance 100 Other Goals LTG: improve ambulation to SBA with LRAD 200 feet Days to Meet Goals 10 Frequency of Treatment Frequency Of Treatment Twice a Day Treatment Plan Physical Therapy Treatment Plan Bed Mobility Training,Transfer Training,Gait Training, Therapeutic Exercise,Balance Retraining,Discharge Planning, Neuromuscular Re-ed, Coordination Retraining Other Recommendations and Next Treatment gait using fWW, neuro re-ed Focus standing balance, monitor BP, unsure if has stairs at home. Precautions Other Precautions HTN Recommendations To Nursing Amount of Assist Needed 1 Person Assist Discharge Recommendations PT Discharge Recommendations Acute Rehab Equipment Needed for Home Before defer to rehab setting Discharge Transportation Needs at Discharge Wheelchair/Cabulance
--- NOTE | 2020-12-03 12:27 | OT.IP.TRT ---
Current Diagnoses Cerebral infarction, unspecified (12/01/20) Occupational Therapy Treatment Note M2 OT-IP Current Condition Start: 12/02/20 11:13 Freq: Status: Active Protocol: Document 12/02/20 11:13 [facility] (Rec: 12/02/20 11:29 [facility] [id number]) Occupational Therapy Current Condition Current Condition Evaluation Date 12/02/20 Treatment Diagnosis CVA Diagnosis Onset Date 12/01/20 M3 OT- IP Subjective and Pain Start: 12/02/20 11:13 Freq: Status: Active Protocol: Document 12/03/20 12:28 [facility] (Rec: 12/03/20 12:37 [facility] [id number]) OT- Subjective Occupational Therapy Visit Type Type Treatment Note Visit Start Time 1158 Visit Stop Time 12:27 Total Visit Minutes 29 Occupational Therapy Visit Comments Patient Comments Pt just finishing talking to Dr. Alves and agreed to work on FMS with OT. Patient/Caregiver Goals Pt agreed would be best for pt to go to acute rehab. OT Pain Assessment Pain When Pain Assessed At Rest Pain Present Pain Present Denied Pain M4 OT- IP ADL's Start: 12/02/20 11:13 Freq: Status: Active Protocol: Document 12/03/20 12:28 [facility] (Rec: 12/03/20 12:37 [facility] [id number]) OT [id number] General Evaluation Self-Feeding Ability Minimal Assistance Areas Needing Assistance Opening Containers Comments OT Self-Feeding Comments Pt vc for follow swallowing safety suggestions. Pt trying to have pureed soup with his fork initially before realizing best to use his spoon. Pt needing increased time to figure out how to get his straw into his smoothie drink with lid. OT ADL-Grooming Comments OT Grooming Comments Pt able to brush his hair while seated with right hand. M6 OT- IP Functional Cognition Start: 12/02/20 11:13 Freq: Status: Active Protocol: Document 12/03/20 12:28 [facility] (Rec: 12/03/20 12:37 [facility] [id number]) Cognitive Factors Limiting Selfcare Function Cognitive Ability Level of Alertness Alert Patient Orientation Name,Birthday,Situation Attention Span Ability Capable of Focused Attention, Capable of Sustained Attention Ability to Follow Commands Able to Follow One Step Commands with Increased Time, Able to Follow One Step Commands with Repetition Memory Description Short Term Impaired,Working Impaired Safety Awareness Underestimates Need for Assistance Problem Solving Ability Unable to Identify Errors, Needs Assist to Identify Solutions Cognitive Comments Cognitive Assessment Comments Increased time for pt to figure out to use the spoon versus fork for his soup. Pt having difficulty to read the menu and questionable whether pt may have any visual deficits. Pt states able to see the letters but unable to read correctly. M8 OT- IP Objective Assessments Start: 12/02/20 11:13 Freq: Status: Active Protocol: Document 12/03/20 12:28 [facility] (Rec: 12/03/20 12:37 [facility] [id number]) OT- Coordination Assessment Comments Coordination Comments Right hand 9 hole peg 33 seconds. Pt only able to put in 3 pegs after 32 seconds and got frustrated and stopped. Educated pt on finger to thumb and thumb to finger to increasea ease to pick up and delivery driver items such as brush, straw, utensils, etc... M9 OT- IP Assessment and Plan Start: 12/02/20 11:13 Freq: Status: Active Protocol: Document 12/03/20 12:28 [facility] (Rec: 12/03/20 12:37 [facility] [id number]) OT Summary Assessment and Plan Potential Rehabilitation Potential Good Analytic Complexity at Evaluation Moderate Summary OT Impairments Range of Motion,Strength, Balance,Coordination, Functional Cognition, Functional Mobility,Self- Feeding,Grooming,Dressing, Toileting,Bathing,Toilet Transfers,Shower Transfers, Activity Tolerance Progress Towards Goals Progressing Toward Goals,Slow Progress due to Cognition Assessment Summary Pt able to work on FMS with left hand with therapist and at the end of the session able to pick up and delivery driver items with increased ease. Pt needing reminders to use left hand as he at times neglect use of left hand. Pt would greatly benefit from acute rehab.Pt gave therapist permission to call his sister to ask questions regarding his prior level of function and care. Goals Self-Feeding Goal Independent Grooming Goal Independent Dressing Goal Independent Toileting Goal Independent Bathing Goal Independent Toilet Transfer Goal Independent Shower Transfer Goal Independent Days to Meet Goals 23 Frequency of Treatment Frequency Of Treatment Twice a Day Treatment Plan OT Treatment Plan ADL Training,Functional Cognition Training,Functional Mobility,Patient/Family Education,Discharge Planning Other Treatment Recommendations and Next ADL's with left hand Treatment Focus Discharge Recommendations OT Discharge Recommendations Acute Rehab Transportation Needs at Discharge Wheelchair/Cabulance
--- NOTE | 2020-12-03 12:49 | P.PN_ITS ---
Subjective Subjective Date Patient Seen: 12/03/20 Interval history: Mr. powell is a 75-year-old male who was admitted to the hospital for an acute CVA. It patient was seen as an inpatient at [facility] for an acute right MCA. Patient was discharged and had recurrent speech abnormalities and further CVA in the same territory. He has since been on IV heparin. He has had improvement in his speech and left-sided weakness. However he continues to have significant difficulty with higher level thinking and still with some aphasia, dysarthria. Exam Vital Signs (past 8 hours): - 12/03/20 08:00 Temperature 98.4 F Pulse Rate 77 Respiratory Rate 16 Blood Pressure 169/84 H Pulse Oximetry 98 Oxygen Delivery Method Room Air Oxygen Flow Rate 0 Narrative Exam Narrative: Elderly male lying in bed no obvious did HEENT normocephalic atraumatic, extraocular muscles are intact left facial droop Lungs: Decreased breath sounds but clear to auscultate Cardiac exam: Rate and rhythm normal S1-S2 Abdomen soft non Neuro exam, strength is symmetric and equal, mild left upper extremity weakness, left facial droop persists, significant aphasia is still noted NIH stroke scale score now 5-6 which is improved Objective Labs Result Diagrams: 12/03/20 04:45 12/01/20 08:27 Labs: Laboratory Results - last 24 hr 12/03/20 12/03/20 12/03/20 04:45 04:45 04:45 Hgb 12.8 L Hct 36.9 L Plt Count 268 APTT 95 H* D [facility] Medical History Anxiety COPD (chronic obstructive pulmonary disease) with emphysema CVA (cerebral vascular accident) Hypertension Social History household members: family and children lives independently: Yes Smoking Status: Former smoker Assessment & Plan Assessment & Plan narrative: Acute CVA, present on admission - Patient was admitted to [facility] 11/24-11/29 for a R MCA CVA. NIHSS was 3 on that admission and PT notes reviewed show much more function compared to his arrival. He has worsened L sided weakness - MRI showing multiple new acute right infarcts with a right MCA occlusion. Tele stroke services were consulted in the emergency room, and I discussed the recommendations myself with Dr. Pradhan, the neurologist at [facility]. Thankfully, Dr. Pradhan had been involved in the care with this patient at [place] and was also able to review the prior imaging. She was concerned for stump syndrome, and recommended cessation of the patient's aspirin and Plavix and instead initiation of a heparin drip for 48 hours followed by repeat head CT with then subsequent initiation of Coumadin for approximately 30 days. She also possibly was considering a bypass surgery, however this is rarely done. Family elected to stay at [facility], despite not having neurology or neuro surgery if there were to be any complications arising from treating him with heparin, and they understood these risks. They also reiterated that they do not and the patient would not want any interventions done were he to have a bleed. Patient was able to communicate somewhat, he is currently DNR, and stated to me he would not want a feeding tube. - NIHSS in the ER 10,today NIHSS is 7, ICU status for q2 hour neurochecks while on heparin infusion and high risk of bleeding. - consult PT/OT after heparin infusion. - Speech therapy ordered - Telestroke recommended rapid follow up if discharged, with either [facility] in [place] or Stroke neurologist associated with [facility] or [facility] Stroke Neurologists if family willing. - Repeat CT after 48 hours (12/03 4pm) on heparin infusion, continue monitoring ptt q6 hours. - Start Coumadin if no bleeding on follow up CT imaging. - stop asa and plavix per telestroke. -echocardiogram was recently performed at [facility] about a week ago, this showed an EF of 60-65%, grade 1 diastolic dysfunction, mild left ventricular hypertrophy, and a negative bubble study. - Recommend Acute Rehabilitation evaluation -patient continues to have significant aphasia, dysarthria, higher level cognitive decline mild left-sided weakness, mostly decisional making issues, would continue to recommend acute rehab if -repeat head CT shows no evidence of a bleed, there is a right parietal infarct noted, patient will continue IV heparin today until 4:00 p.m. and then switch over to come 2. HTN - permissive hypertension allowed, but recommended by telestroke SBP <160. Will order home medications to start tomorrow evening. -resume usual medications as blood pressure is elevated and patient on IV heparin -the patient is on amlodipine 10 mg per day, lisinopril 20 mg daily, will continue to monitor closely 3. COPD, without acute exacerbation. - RT eval and treat, replace home fluticasone with budesonide BID, albuterol prn ordered. 4. Chronic diastolic heart failure - patient with TTE at [facility] showing grade I diastolic heart failure. Does not appear to be acutely overloaded. Continue home antihypertensives as noted above. Quality VTE Deep Vein Thrombosis/Pulmonary Embolism Present on Admission: No
--- NOTE | 2020-12-03 13:13 | CM.DPC ---
DCP/continued: Reviewed chart. Spoke with provider in AM rounds. Patient currently on heparin drip. Provider hopeful that this will be discontinued today. Placed call to Corinne at [facility] re: acute rehabilitation placement. Corinne reports that they are low on beds. She has reviewed information and provider has questions for our provider re: long-term POC related to patient having multiple strokes in short period of time. [employer] provided Corinne with [facility] provider's cell phone number for there provider to call. Corinne unsure at this time if patient will be accepted and encourages back up plan. Therefore, in addition, to the above received call from Pat at [facility]. She reports that they can accept if [facility] does not. Anticipate that patient will go to SNF vs. acute rehabilitation. CM team following closely. JORDI is sister/Lilly ph# [phone]. Lilly would like to be notified of any d/c planning needs prior to d/c. Lilly aware that [facility] and [facility] evaluating. P: Pending. ROSI Guerra
--- NOTE | 2020-12-03 15:56 | PT.IPTN ---
Current Diagnoses Cerebral infarction, unspecified (12/01/20) Physical Therapy Treatment Note M2 PT-IP Current Condition Start: 12/02/20 10:15 Freq: NEEDED Status: Active Protocol: Document 12/02/20 11:05 AW (Rec: 12/02/20 11:46 AW [id number]) Physical Therapy Current Condition Current Condition Evaluation Date 12/02/20 Treatment Diagnosis acute/subacute CVA; left hemiparesis; impaired balance and mobility Onset Date 11/24/20 Precautions Other Precautions HTN M3 PT-IP Subjective Start: 12/02/20 10:15 Freq: NEEDED Status: Active Protocol: Document 12/03/20 15:24 SP (Rec: 12/03/20 17:19 SP [id number]) Subjective Physical Therapy Visit Type Type Treatment Note Visit Start Time 15:24 Visit Stop Time 15:56 Total Visit Minutes 32 Notes Vitals post bed mobility sitting EOB: BP 175/ 91, HR 82 , 97% on RA Number of [employer] WORKER Visits 2 Physical Therapy Visit Comments Patient Comments pt agreeable to working with therapy. Therapy Pain Assessment Pain Present Pain Present Denied Pain M4 PT-IP Mobility and Gait Start: 12/02/20 10:15 Freq: NEEDED Status: Active Protocol: Document 12/03/20 15:24 SP (Rec: 12/03/20 17:19 SP [id number]) PT-Bed Mobility Assessment Supine to Sit Supine to Sit Minimal Assistance Sit to Supine Sit to Supine Contact Guard Assistance Scooting Scooting to Edge of Bed Standby Assistance PT-Transfer Assessment Sit to and From Stand Sit to and from Stand Contact Guard Assistance,1 Person Assistance,Use of Upper Extremities Equipment Transfer Assistive Device Gait Belt,Front Wheeled Walker Orthotic/Prosthetic Devices or Brace: No Transfers Transfer Destination Bed,Toilet Transfer Technique pt ambulated using fWW Transfer Ability Level of Assist Contact Guard Assistance,1 Person Assistance,Use of Upper Extremities Comments Mobility Comments Pt was sleeping in bed when arrived, reported very lethargic this afternoon. needed more time to mobilize. supine>sit Allie to pull form therapist had and UE WB on bed transition sit. Sit>stand CGA using fWW, cuing for proper hand placement push from bed. Pt ambulated into hallway shorter distance due to tired and decreased endurance this pm tx CGA using fWW, [employer] managed IV pole. Pt lost stool control when entering the room, walked to bathroom with max cuing for safety taking wider step. Max cuing for sequencing pivot in bathroom and fWW positioning, assist brief mgt and [place] cuing for use of grab bar slow descent to toilet. Extra time spent max assist pt w/ hygiene care sit and stand positions CGA, CNAs were unavailable. Sit> stand from toilet cue for use grab bar, ambulated back to bed, stand>sit>supine CGA. Pt had call light and all needs in reach before left. Evening CNAs arrived end of tx, reported assist with care required during tx. Gait Assessment Gait Gait Assistance Required: Contact Guard Assist,1 Person Assist Distance (Feet) 100 Able to Maintain Weight Bearing Status Yes During Gait Assistive Devices Assistive Device Gait Belt,Front Wheeled Walker Orthotic/Prosthetic Devices or Brace: No Gait Deviations General Gait Pattern Decreased Stride Length, Decreased Feet Clearance, Flexed Trunk Factors Limiting Gait Function Factors Limiting Gait Function Decreased Activity Tolerance, Decreased Strength,Difficulty Following Directions,Poor Balance,Poor Safety Awareness Comments Gait Comments See mobility comments. Stair Climbing Assessment Comments Stair Climbing Comments Not assessed. PT-Balance Assessment Sitting Balance and Reactions Static Sitting Balance Ability Good Dynamic Sitting Balance Ability Good Standing Balance and Reactions Static Standing Balance Ability Good Dynamic Standing Balance Ability Fair Device Used FWW M5 PT-IP Objective Assessments Start: 12/02/20 10:15 Freq: NEEDED Status: Active Protocol: Document 12/02/20 11:05 AW (Rec: 12/02/20 11:46 AW [id number]) Orientation Orientation/Cognition Level of Alertness Alert Orientation Name,Place,Situation Language Function Ability Expressive Aphasia,Receptive Aphasia,Word Finding Difficulties Safety Awareness Decreased Safety Awareness Memory Description Short Term Impaired Comments Pt answers many questions non- sensically but is aware of this. He communicates appreciation for assist and states he enjoys working with therapy. Gross Range of Motion Lower Extremity ROM Assessment Within Functional Limits Strength Lower Extremity Strength Assessment Bilaterally Impaired Comments Strength Comments LLE 3+/5 RLE 4/5 Coordination Assessment Gross Coordination Gross Coordination Impaired Assessment Finger to Nose Test Moderate Impairment Pronation/Supination Test Moderate Impairment Foot Tapping Test Minimal Impairment Coordination Comments Pt missed targets on EO finger to nose ~3 cm with LUE. Sensation Assessment Sensation Gross Sensation Left UE Impaired,Left LE Impaired Light Touch Impaired Proprioception (Position) Impaired Sensation Description Numbness Comments Sensation Comments Pt states he is able to feel light touch on his left side ( face, trunk, UE, LE) but it all feels slow compared with right side Muscle Tone Muscle Tone WNL Yes Comments Muscle Tone Comments Negative clonus at bilateral ankles and wrists Other Assessments Other Other Assessments Occulomotor exam grossly normal. Unable to complete vestibular exam but no signs of vestibular involvement. Visual clements appear intact. Left facial droop and drooling with pt reporting no awareness of drool. M6 PT-IP Treatment Start: 12/02/20 10:15 Freq: NEEDED Status: Active Protocol: Document 12/03/20 15:24 SP (Rec: 12/03/20 17:19 SP [id number]) Physical Therapy Treatment Education Education Provided Safety M7 PT-IP Assessment and Plan Start: 12/02/20 10:15 Freq: NEEDED Status: Active Protocol: Document 12/03/20 15:24 SP (Rec: 12/03/20 17:19 SP [id number]) PT Summary Assessment and Plan Potential Rehabilitation Potential Good Status of Condition at Evaluation Evolving Summary Impairments Pain,ROM,Strength,Balance, Coordination,Sensation,Tone, Cognition,Bed Mobility, Transfers,Gait,Activity Tolerance Progress Towards Goals Progressing Toward Goals,Slow Progress due to Medical Issues ,Slow Progress due to Activity Tolerance Assessment Summary Pt required Min A bed mobility , CGA during all standing mobility using FWW and max assist with bathroom hygiene care. Pt required max cuing for safety sequecing during transfers with decrease endurance gait using fWW, he would be a good candidate for acute rehab. Will continue to assess progress. Goals Bed Mobility Goal Independent Transfer Goal Contact Guard Assistance,Front Wheeled Walker Gait Goal Contact Guard Assistance,Front Wheel Walker Gait Distance 100 Other Goals LTG: improve ambulation to SBA with LRAD 200 feet Days to Meet Goals 10 Frequency of Treatment Frequency Of Treatment Twice a Day Treatment Plan Physical Therapy Treatment Plan Bed Mobility Training,Transfer Training,Gait Training, Therapeutic Exercise,Balance Retraining,Discharge Planning, Neuromuscular Re-ed, Coordination Retraining Other Recommendations and Next Treatment gait using fWW, neuro re-ed Focus standing balance, monitor BP, unsure if has stairs at home. Precautions Other Precautions HTN Recommendations To Nursing Amount of Assist Needed 1 Person Assist Discharge Recommendations PT Discharge Recommendations Acute Rehab Equipment Needed for Home Before defer to rehab setting Discharge Transportation Needs at Discharge Wheelchair/Cabulance
[2020-12-03] MEDS: WARFARIN 5 MG TABLET PO (17:43)
[2020-12-03] MEDS: BUDESONIDE 0.5 MG/2 ML NEB INH (19:32)
[2020-12-03] MEDS: AMITRIPTYLINE 25 MG TABLET PO (20:36)
[2020-12-03] MEDS: ATORVASTATIN 20 MG TABLET 80 MG PO (20:37)
[2020-12-04] MEDS: ACETAMINOPHEN 325 MG TABLET 650 MG PO (00:44)
[2020-12-04 00:57] VITALS: BP 154/71; PULSE 80; RESP 22; TEMP 36.9; O2SAT 96
[2020-12-04 04:56] LABS: Add Manual Diff / Slide Review NO; Basophils Absolute Auto 100 /uL (0-100); Basophils Percent Auto 1.1 % (0-2); Eosinophils Absolute Auto 100 /uL (0-450); Eosinophils Percent Auto 2.8 % (2-4); Hematocrit 36.5 % (41-53); Hemoglobin 12.9 g/dL (13.5-17.5); Lymphocytes Absolute Auto 2000 /uL (1100-4500); Lymphocytes Percent Auto 39.2 % (25-40); Mean Corpuscular HGB Conc 35.5 % (30-36); Mean Corpuscular Hemoglobin 32.5 PG (26-34); Mean Corpuscular Volume 91.4 fL (80-100); Monocytes Absolute Auto 600 /uL (0-900); Monocytes Percent Auto 12.2 % (3-14); Neutrophils Absolute Auto 2200 /uL (1500-7000); Neutrophils Percent Auto 44.7 % (50-75); Platelet Count 287 X10^3/uL (150-400); Red Blood Cell Count 3.99 X10^6/uL (4.5-5.9); Red Cell Distribution Width 12.8 % (11.6-14.8)
[2020-12-04 05:00] VITALS: BP 153/80; PULSE 67; RESP 20; TEMP 36.1; O2SAT 94
[2020-12-04 05:06] LABS: PTT Partial Thromboplastin Tim 29 SECONDS (26.4-36.2)
[2020-12-04 05:21] LABS: INR 1.1 (0.9-1.3); Prothrombin Time 12.2 SECONDS (10.1-12.7)
[2020-12-04 08:00] VITALS: BP 161/83; PULSE 82; RESP 18; TEMP 36.7; O2SAT 97
--- NOTE | 2020-12-04 09:25 | PT.IPTN ---
Current Diagnoses Cerebral infarction, unspecified (12/01/20) Physical Therapy Treatment Note M2 PT-IP Current Condition Start: 12/02/20 10:15 Freq: NEEDED Status: Active Protocol: Document 12/02/20 11:05 AW (Rec: 12/02/20 11:46 AW [id number]) Physical Therapy Current Condition Current Condition Evaluation Date 12/02/20 Treatment Diagnosis acute/subacute CVA; left hemiparesis; impaired balance and mobility Onset Date 11/24/20 Precautions Other Precautions HTN M3 PT-IP Subjective Start: 12/02/20 10:15 Freq: NEEDED Status: Active Protocol: Document 12/04/20 09:10 CLB (Rec: 12/04/20 12:09 CLB [id number]) Subjective Physical Therapy Visit Type Type Treatment Note Visit Start Time 09:09 Visit Stop Time 09:25 Total Visit Minutes 16 Number of WINDSHIELD TECHNICIAN Visits 3 Physical Therapy Visit Comments Patient Comments I'm feeling pretty good, a little sleepy Therapy Pain Assessment Pain Present Pain Present Denied Pain M4 PT-IP Mobility and Gait Start: 12/02/20 10:15 Freq: NEEDED Status: Active Protocol: Document 12/04/20 09:10 CLB (Rec: 12/04/20 12:09 CLB [id number]) PT-Bed Mobility Assessment Supine to Sit Supine to Sit Standby Assistance,1 Person Assistance,Head of Bed Elevated Scooting Scooting to Edge of Bed Standby Assistance PT-Transfer Assessment Sit to and From Stand Sit to and from Stand Contact Guard Assistance,1 Person Assistance,Use of Upper Extremities Equipment Transfer Assistive Device Gait Belt,Front Wheeled Walker Orthotic/Prosthetic Devices or Brace: No Transfers Transfer Destination Bed,Toilet Transfer Technique pt ambulated using fWW Transfer Ability Level of Assist Contact Guard Assistance,1 Person Assistance,Use of Upper Extremities Comments Mobility Comments Pt stood from bed and brief was falling, RN called to request clean brief. Pt sat back on EOB requiring assist with doffing and donning brief . Pt ambulated towards the door then requested to use BR. Pt required CGA into BR as pt runs into obstacles of left side. Pt required cues to position in front of toilet for safety and to use wall rail. OT entered room and took over pt care. Gait Assessment Gait Gait Assistance Required: Contact Guard Assist,1 Person Assist Distance (Feet) 30 Able to Maintain Weight Bearing Status Yes During Gait Assistive Devices Assistive Device Gait Belt,Front Wheeled Walker Orthotic/Prosthetic Devices or Brace: No Gait Deviations General Gait Pattern Decreased Stride Length, Decreased Feet Clearance, Flexed Trunk Factors Limiting Gait Function Factors Limiting Gait Function Decreased Activity Tolerance, Decreased Strength,Difficulty Following Directions,Poor Balance,Poor Safety Awareness Comments Gait Comments See mobility comments. Stair Climbing Assessment Comments Stair Climbing Comments Not assessed. PT-Balance Assessment Sitting Balance and Reactions Static Sitting Balance Ability Good Dynamic Sitting Balance Ability Good Standing Balance and Reactions Static Standing Balance Ability Good Dynamic Standing Balance Ability Fair Device Used FWW M5 PT-IP Objective Assessments Start: 12/02/20 10:15 Freq: NEEDED Status: Active Protocol: Document 12/02/20 11:05 AW (Rec: 12/02/20 11:46 AW [id number]) Orientation Orientation/Cognition Level of Alertness Alert Orientation Name,Place,Situation Language Function Ability Expressive Aphasia,Receptive Aphasia,Word Finding Difficulties Safety Awareness Decreased Safety Awareness Memory Description Short Term Impaired Comments Pt answers many questions non- sensically but is aware of this. He communicates appreciation for assist and states he enjoys working with therapy. Gross Range of Motion Lower Extremity ROM Assessment Within Functional Limits Strength Lower Extremity Strength Assessment Bilaterally Impaired Comments Strength Comments LLE 3+/5 RLE 4/5 Coordination Assessment Gross Coordination Gross Coordination Impaired Assessment Finger to Nose Test Moderate Impairment Pronation/Supination Test Moderate Impairment Foot Tapping Test Minimal Impairment Coordination Comments Pt missed targets on EO finger to nose ~3 cm with LUE. Sensation Assessment Sensation Gross Sensation Left UE Impaired,Left LE Impaired Light Touch Impaired Proprioception (Position) Impaired Sensation Description Numbness Comments Sensation Comments Pt states he is able to feel light touch on his left side ( face, trunk, UE, LE) but it all feels slow compared with right side Muscle Tone Muscle Tone WNL Yes Comments Muscle Tone Comments Negative clonus at bilateral ankles and wrists Other Assessments Other Other Assessments Occulomotor exam grossly normal. Unable to complete vestibular exam but no signs of vestibular involvement. Visual clements appear intact. Left facial droop and drooling with pt reporting no awareness of drool. M6 PT-IP Treatment Start: 12/02/20 10:15 Freq: NEEDED Status: Active Protocol: Document 12/03/20 15:24 SP (Rec: 12/03/20 17:19 SP [id number]) Physical Therapy Treatment Education Education Provided Safety M7 PT-IP Assessment and Plan Start: 12/02/20 10:15 Freq: NEEDED Status: Active Protocol: Document 12/04/20 09:10 CLB (Rec: 12/04/20 12:09 CLB [id number]) PT Summary Assessment and Plan Potential Rehabilitation Potential Good Status of Condition at Evaluation Evolving Summary Impairments Pain,ROM,Strength,Balance, Coordination,Sensation,Tone, Cognition,Bed Mobility, Transfers,Gait,Activity Tolerance Progress Towards Goals Progressing Toward Goals,Slow Progress due to Medical Issues ,Slow Progress due to Activity Tolerance Assessment Summary Pt improving with bed mobility requiring SBA and CGA for sit -stand and gait. Pt with some neglect of left side requiring cues to grasp left hand on walker and runs into door jam on left when entering BR. Pt will benefit from Goals Bed Mobility Goal Independent Transfer Goal Contact Guard Assistance,Front Wheeled Walker Gait Goal Contact Guard Assistance,Front Wheel Walker Gait Distance 100 Other Goals LTG: improve ambulation to SBA with LRAD 200 feet Days to Meet Goals 10 Frequency of Treatment Frequency Of Treatment Twice a Day Treatment Plan Physical Therapy Treatment Plan Bed Mobility Training,Transfer Training,Gait Training, Therapeutic Exercise,Balance Retraining,Discharge Planning, Neuromuscular Re-ed, Coordination Retraining Other Recommendations and Next Treatment gait using fWW, neuro re-ed Focus standing balance Precautions Other Precautions HTN Recommendations To Nursing Amount of Assist Needed 1 Person Assist Discharge Recommendations PT Discharge Recommendations Acute Rehab Equipment Needed for Home Before defer to rehab setting Discharge Transportation Needs at Discharge Wheelchair/Cabulance
[2020-12-04 09:45] VITALS: PULSE 93; RESP 16; O2SAT 98
[2020-12-04] MEDS: BUDESONIDE 0.5 MG/2 ML NEB INH (09:45)
--- NOTE | 2020-12-04 09:54 | OT.IP.TRT ---
Current Diagnoses Cerebral infarction, unspecified (12/01/20) Occupational Therapy Treatment Note M2 OT-IP Current Condition Start: 12/02/20 11:13 Freq: Status: Active Protocol: Document 12/02/20 11:13 [facility] (Rec: 12/02/20 11:29 [facility] [id number]) Occupational Therapy Current Condition Current Condition Evaluation Date 12/02/20 Treatment Diagnosis CVA Diagnosis Onset Date 12/01/20 M3 OT- IP Subjective and Pain Start: 12/02/20 11:13 Freq: Status: Active Protocol: Document 12/04/20 10:19 [facility] (Rec: 12/04/20 10:30 [facility] [id number]) OT- Subjective Occupational Therapy Visit Type Type Treatment Note Visit Start Time 09:23 Visit Stop Time 09:54 Total Visit Minutes 31 Occupational Therapy Visit Comments Patient Comments Pt with DISHTANK OPERATOR and using the toilet, able to take over as DISHTANK OPERATOR having to leave for rounds . Patient/Caregiver Goals TO get better. OT Pain Assessment Pain When Pain Assessed At Rest Pain Present Pain Present Denied Pain M4 OT- IP ADL's Start: 12/02/20 11:13 Freq: Status: Active Protocol: Document 12/04/20 10:19 [facility] (Rec: 12/04/20 10:30 [facility] [id number]) OT ADL-Grooming Comments OT Grooming Comments Pt not wanting to wash his hands after use of the bathroom , but able to use a wipe to wash his hands. OT ADL-Toileting General Evaluation Toileting Ability Minimal Assistance Areas Needing Assistance Manage Clothing,Perform Perineal Hygiene Comments OT Toileting Comments Assist to help pull up left side of his brief and increased time to get brief over his feet initially. OT ADL-Bathing Comments OT Bathing Comments Not performed. M6 OT- IP Functional Cognition Start: 12/02/20 11:13 Freq: Status: Active Protocol: Document 12/04/20 10:19 [facility] (Rec: 12/04/20 10:30 [facility] [id number]) Cognitive Factors Limiting Selfcare Function Cognitive Comments Cognitive Assessment Comments Pt still having difficulty understanding instructions. Pt not aware that his brief was wet and needing to be changed. Greater neglect for LUE noted more today. Cues to use his left hand during ADl and mobility needs. OT- Vision and Hearing OT- Vision Assessment Vision Assessment Comments Left neglect, per DISHTANK OPERATOR pt was bumping into items on the left side. M7 OT- IP Mobility and Balance Start: 12/02/20 11:13 Freq: Status: Active Protocol: Document 12/04/20 10:19 [facility] (Rec: 12/04/20 10:30 [facility] [id number]) OT-Transfer Assessment Sit to and From Stand Sit to and from Stand Contact Guard Assistance Transfers Transfer Ability Minimal Assistance Technique Transfer Destination Chair,Toilet Transfer Technique Stand Step Pivot Devices Transfer Assistive Devices Gait Belt,Front Wheeled Walker Comments Mobility Comments Pt tends to enrique to the right with his FWW, as pushing more with his right hand on the handle of FWW. Cues to slow down and focus on his alignment and appeared to improve initially , until pt got tired. OT- Balance Assessment Sitting Balance and Reactions Static Sitting Balance Ability Good Dynamic Sitting Balance Ability Fair Standing Balance and Reactions Static Standing Balance Ability Fair Dynamic Standing Balance Ability Poor M9 OT- IP Assessment and Plan Start: 12/02/20 11:13 Freq: Status: Active Protocol: Document 12/04/20 10:19 [facility] (Rec: 12/04/20 10:30 [facility] [id number]) OT Summary Assessment and Plan Potential Rehabilitation Potential Good Analytic Complexity at Evaluation Moderate Summary OT Impairments Range of Motion,Strength, Balance,Coordination, Functional Cognition, Functional Mobility,Self- Feeding,Grooming,Dressing, Toileting,Bathing,Toilet Transfers,Shower Transfers, Activity Tolerance Progress Towards Goals Progressing Toward Goals,Slow Progress due to Cognition Assessment Summary Pt doing better with left hand FMS and now able to parts picker a quarter and able to grasp the concept today on bringing his finger to thumb in order to parts picker items. Pt notes increased left neglect and tightness of left arm today. Pt will benefit from either acute rehab versus skilled rehab prior to going home. Goals Self-Feeding Goal Independent Grooming Goal Independent Dressing Goal Independent Toileting Goal Independent Bathing Goal Independent Toilet Transfer Goal Independent Shower Transfer Goal Independent Days to Meet Goals 31 Frequency of Treatment Frequency Of Treatment Twice a Day Treatment Plan OT Treatment Plan ADL Training,Functional Cognition Training,Functional Mobility,Patient/Family Education,Discharge Planning Other Treatment Recommendations and Next shower Treatment Focus Discharge Recommendations OT Discharge Recommendations SNF vs Acute Rehab Transportation Needs at Discharge Wheelchair/Cabulance
--- NOTE | 2020-12-04 11:09 | ST.IPTN ---
Visit Care Team Role Provider Type Kevon Martinez DO Emergency Provider Physician Referring Provider Address: [address] [place] [address], [id number] Russ aVldes DO Admit Provider Physician Attending Provider Address: [address] [place] [address], [id number] GRAPPLE SKIDDER OPERATOR Treatment Note GRAPPLE SKIDDER OPERATOR Treatment Note Start: 12/04/20 10:54 Freq: Status: Active Protocol: Document 12/04/20 10:54 [facility] (Rec: 12/04/20 11:09 [facility] [id number]) Speech Pathology Treatment Note Session Time Visit Start Time 10:25 Visit Stop Time 10:50 Total Visit Minutes 25 Visit Information Visit Number 3 Setting Treatment Setting Acute Care Visit Type Note Type Treatment Note Next Note Type Next Note Type Treatment Note Subjective Observations/Patient Presentation Per nursing, patient is communicating more clearly this morning. Patient was sitting upright in chair in room, says he is tired from not sleeping much last night. Left facial droop and periodic drooling throughout session. Patient independently used cloth to wipe drool. Chief Complaint(s) Language,Swallowing,Cognitive Objective Short Term Goals 1. The pt will demonstrate communication skills sufficient to effectively participate in conversations and decisions related to his medical care. 2. The pt will tolerate least restrictive diet to meet his nutrition and hydration needs. Treatment Activities Performed informal language assessment to further evaluate patient's language skills. Patient correctly named 3/5 items around his room. He answered 5/6 simple yes/no questions correctly. He followed 4/5 1-step commands. When asked to clap his hands he responded now how do I do that?. He was able to copy me clapping. During reading tasks, he correctly read 1/5 words out loud. Unsure whether or not vision may be playing a part in his reading difficulty. Automatic speech tasks were okay (~75% accuracy ). He needed a cue to initiate naming months of the year. He correctly completed common phrases (salt and ___) in 3/5 opportunities. His connected speech is characterized by reduced length and complexity of utterances, moderate agrammatism, garbled syntax, word finding pauses, and semantic paraphasias. Assessment Patient Response to Treatment Good Rehab Potential Good Impairments Identified Aphasia,Cognitive-Linguistic Skills,Expressive Language, Receptive Language Progress Towards Goals Good Progress Assessment of Overall Progress Improving Assessment of Improvement Patient is able to communicate simple ideas and communicative effectiveness improves with strategies ( reduced rate), but his overall communication impairment is moderate with participant sharing burden of conversation . Reviewed with Patient Progress Being Made Patient/Caregiver Understanding Fair Plan Therapy Recommendations Continue with Current Program
[2020-12-04 11:56] LABS: COVID19 -Nasal RAPID Negative (Negative)
[2020-12-04] MEDS: AMLODIPINE 5 MG TABLET 10 MG PO (12:25)
[2020-12-04] MEDS: SERTRALINE 50 MG TABLET PO (12:25)
[2020-12-04 12:26] VITALS: BP 168/77; PULSE 77
[2020-12-04] MEDS: SODIUM CHLORIDE 0.9% FLUSH 10 ML IV (12:26)
[2020-12-04] MEDS: lisinopriL 20 MG TABLET PO (12:26)
--- NOTE | 2020-12-04 12:45 | PT-IP ANOTE ---
Checked on pt, pt is eating lunch and is not ready for PT at this time. Will check back with pt this PM.
--- NOTE | 2020-12-04 12:49 | P.DS_ITS ---
History of Present Illness History of Present Illness Date Patient Seen: 12/04/20 Chief complaint: Confused Narrative: Senthil Anderson is a 75 year old male without past medical history of hypertension, COPD, and multiple previous CVAs, most recently was admitted to [facility] and discharged on November 29 for an acute CVA of the R MCA. Patient's family reports that yesterday evening he developed more difficulty speaking and had worsening left-sided weakness. He was also noted to be more difficult to arouse and was quite a bit weaker than when he had left the hospital. He was also having more difficulty communicating, seemingly confused. He does complain of some pressure in his lower abdomen, but denies any chest pain, shortness of breath, palpitations. Upon questioning, the patient sometimes responds inappropriately with nonsense, making review of systems quite difficult to obtain. According to review of the discharge summary from [facility], he was admitted on 11/24 and discharged on 11/29. On admission he had an NIHSS of 3 and was started on DAPT. his lisinopril was also increased to 20 mg during that admission. He had been living in [place], but after his stroke he moved closer to family in [place]. In the emergency room, the patient's vital signs are unremarkable. Laboratory evaluations revealed an unremarkable CBC, normal coagulation studies, fairly unremarkable chemistry panel with only mild elevations in AST and ALT of 60 and 63 respectively. Alcohol level was negative. Ammonia level was less than 9. COVID-19 testing was negative. EKG showed normal sinus rhythm. NIHSS was approximately 10. CT head and MRI stroke protocol are noted below, in short MRI showing multiple new acute right infarcts with a right MCA occlusion. Tele stroke services were consulted in the emergency room, and I discussed the recommendations myself with Dr. Pradhan, the neurologist at [facility]. Thankfully, Dr. Pradhan had been involved in the care with this patient at [facility] and was also able to review the prior imaging. She was concerned for stump syndrome, and recommended cessation of the patient's aspirin and Plavix and instead initiation of a heparin drip for 48 hours followed by repeat head CT with then subsequent initiation of Coumadin for approximately 30 days. She also possibly was considering a bypass surgery, however this is rarely done. Family elected to stay at [facility], despite not having neurology or neuro surgery if there were to be any complications arising from treating him with heparin, and they understood these risks. They also reiterated that they may not even want any interventions done were he to have a bleed. Patient was able to communicate somewhat, he is currently DNR, and stated to me he would not want a feeding tube. He will Be admitted to the ICU for close neurologic monitoring after this acute CVA while being placed on heparin infusion. Discharge Providers Provider Date of admission: 12/01/20 13:33 Discharge Date: 12/04/20 Consults: 12/01/20 10:07 Consult to AS400 CONSULTANT - [employer] Dyer Stat Comment: AS400 CONSULTANT Consult: [facility] Need 12/01/20 15:56 Consult to Speech Therapy Evaluate & Treat Comment: Physician Instructions: Evaluate and treat 12/02/20 09:23 Consult to Occupational Therapy Evaluate & Treat Comment: Physician Instructions: Evaluate and treat Consult to Physical Therapy Evaluate & Treat Comment: Physician Instructions: Evaluate and Treat Discharge provider: Ghazal Alves MD Summary Hospital Course Discharge Diagnosis: 1. Acute infarcts involving the right centrum semiovale, right gamble radiata, right putamen, right insula and the junction of the right temporal-occipital lobes. 2. Hypertension 3. COPD multiple previous CVAs Hospital Course: Patient was admitted to the hospital for stuttering recurrent CVAs involving the right MCA. MRI confirmed on admission and acute infarct involving the right centrum semiovale, right gamble radiata, right putamen condom a right insula junction of the right temporal occipital lobe. Patient was noted to have left facial droop, left-sided weakness, aphasia, and dysarthria. The patient was treated with IV heparin for [address] showed no evidence of bleed. Patient was transition to Coumadin with a goal INR of 2.0. The patient continued to make steady improvement in terms of his functional mobility involving the left arm and left leg. He continued to have left face droop. He continued to have aphasia in difficulty with higher cognitive he denied any shortness of breath or chest pain. He made slow but steady recovery and was deemed appropriate for transfer to subacute rehab. Status at Discharge Cognitive/behavioral status at discharge: oriented Functional status at discharge: uses cane/walker Overall status at discharge: patient is not back to baseline Time Spent with Patient Time spent: Less than 30 minutes Exam Vital Signs (past 8 hours): - 12/04/20 05:00 12/04/20 08:00 12/04/20 09:45 Temperature 96.9 F L 98.0 F Pulse Rate 67 82 93 H Respiratory Rate 20 18 16 Blood Pressure 153/80 H 161/83 H Pulse Oximetry 94 97 98 12/04/20 12:26 Temperature Pulse Rate 77 Respiratory Rate Blood Pressure 168/77 H Pulse Oximetry Oxygen Delivery Method Room Air Oxygen Flow Rate 0 Narrative Exam Narrative: Pleasant male sitting in bed in no obvious to HEENT: Normocephalic atraumatic, extraocular muscles are intact, left facial d mandi Noted, Lungs: Decreased breath sounds but clear to auscultation Cardiac exam: Regular rate and rhythm normal S1-S2 with a 2/6 systolic ejection murmur Abdomen: Soft nontender nondistended Edema Neuro exam: Notable for left facial droop, no weakness in the arms or legs, sensation grossly intact, Patient is aphasic has trouble stating where he is what month it is or what year it is. Intermittently he will be able to answer questions appropriately Objective Labs Result Diagrams: 12/04/20 04:30 12/01/20 08:27 Labs: Laboratory Results - last 24 hr 12/04/20 12/04/20 12/04/20 04:30 04:30 04:30 WBC 5.0 RBC 3.99 L Hgb 12.9 L Hct 36.5 L MCV 91.4 MCH 32.5 MCHC 35.5 RDW 12.8 Plt Count 287 Neut % (Auto) 44.7 L Lymph % (Auto) 39.2 [place] % (Auto) 12.2 Eos % (Auto) 2.8 Baso % (Auto) 1.1 Neut # (Auto) 2200 Lymph # (Auto) 2000 [place] # (Auto) 600 Eos # (Auto) 100 Baso # (Auto) 100 PT 12.2 INR 1.1 APTT 29 D SARS-CoV-2 (PCR) 12/04/20 11:24 WBC RBC Hgb Hct MCV MCH MCHC RDW Plt Count Neut % (Auto) Lymph % (Auto) [place] % (Auto) Eos % (Auto) Baso % (Auto) Neut # (Auto) Lymph # (Auto) [place] # (Auto) Eos # (Auto) Baso # (Auto) PT INR APTT SARS-CoV-2 (PCR) Negative [facility] Medical History Anxiety COPD (chronic obstructive pulmonary disease) with emphysema CVA (cerebral vascular accident) Hypertension Social History household members: family and children lives independently: Yes Smoking Status: Former smoker Discharge Assessment & Plan Assessment and Plan Assessment: 1. Acute left MCA CVA, involving the right centrum semiovale, right gamble radiata, right putamen, right insula at the junction of the right temporal septal lobe, there is a small subacute infarct involving the right occipital lobe 2. Hypertension 3. COPD Plan of Treatment: Discharged to [facility] Medications as prescribed Discharge Plan Discharge Plan Patient Disposition: SNF Transfer to: [facility], [facility] Consult as needed: Dental, Hearing, Mental health, Podiatry and Vision Discharge orders & Medications Prescriptions: New amlodipine [Norvasc] 5 mg Tablet 10 mg PO DAILY Qty: 30 RF: 0 warfarin 5 mg Tablet 5 mg PO DAILY@1700 Qty: 30 RF: 0 Continued atorvastatin 80 mg tablet 80 mg PO BEDTIME RF: 0 lisinopril 20 mg tablet 20 mg PO DAILY RF: 0 amitriptyline 25 mg Tablet 25 mg PO BEDTIME RF: 0 albuterol sulfate [ProAir HFA] 90 mcg/actuation HFA aerosol inhaler 2 puff INHALATION Q4H PRN (Reason: Wheezing) RF: 0 fluticasone propionate 50 mcg/actuation [place],Suspension 2 spray INTRANASAL BID RF: 0 sertraline 50 mg Tablet 50 mg PO DAILY RF: 0 Flovent HFA 110 mcg/actuation Hfa Aerosol Inhaler 2 puff INHALATION BID RF: 0 baclofen 5 mg Tablet 5 mg PO BEDTIME RF: 0 Discontinued clopidogrel 75 mg tablet 75 mg PO DAILY RF: 0 amlodipine 5 mg tablet 5 mg PO BEDTIME RF: 0 aspirin 81 mg tablet,delayed release (DR/EC) 81 mg PO DAILY RF: 0 Discharge Health Status Multidrug resistant organism: No MDRO Diet/Activity/Treatments Diet: Low-sodium Liquid consistency: Normal/Thin Food texture: Regular Other treatments: Needs follow up Protime in 2 days, goal INR 2-3 Special Rehabilitation Services Reason for rehabilitation: Therapy following stroke Rehab type: Physical therapy, Occupational therapy and Speech therapy Quality VTE Deep Vein Thrombosis/Pulmonary Embolism Present on Admission: No
--- NOTE | 2020-12-04 13:51 | PT.IPTN ---
Current Diagnoses Cerebral infarction, unspecified (12/01/20) Physical Therapy Treatment Note M2 PT-IP Current Condition Start: 12/02/20 10:15 Freq: NEEDED Status: Active Protocol: Document 12/02/20 11:05 AW (Rec: 12/02/20 11:46 AW [id number]) Physical Therapy Current Condition Current Condition Evaluation Date 12/02/20 Treatment Diagnosis acute/subacute CVA; left hemiparesis; impaired balance and mobility Onset Date 11/24/20 Precautions Other Precautions HTN M3 PT-IP Subjective Start: 12/02/20 10:15 Freq: NEEDED Status: Active Protocol: Document 12/04/20 13:34 CLB (Rec: 12/04/20 14:35 CLB [id number]) Subjective Physical Therapy Visit Type Type Treatment Note Visit Start Time 13:34 Visit Stop Time 13:51 Total Visit Minutes 17 Number of LABORATORY INSPECTOR Visits 4 Physical Therapy Visit Comments Patient Comments Pt eager to take walk Therapy Pain Assessment Pain Present Pain Present Denied Pain M4 PT-IP Mobility and Gait Start: 12/02/20 10:15 Freq: NEEDED Status: Active Protocol: Document 12/04/20 13:34 CLB (Rec: 12/04/20 14:35 CLB [id number]) PT-Transfer Assessment Sit to and From Stand Sit to and from Stand Contact Guard Assistance,1 Person Assistance,Use of Upper Extremities Equipment Transfer Assistive Device Gait Belt,Front Wheeled Walker Orthotic/Prosthetic Devices or Brace: No Transfers Transfer Destination Chair Transfer Technique pt ambulated using fWW Transfer Ability Level of Assist Contact Guard Assistance,1 Person Assistance,Use of Upper Extremities Comments Mobility Comments Pt stood from chair and ambulated in ricketts ~150ft w/FWW /CGA. Pt turned to right even after instructed to turn left then pt turned around too quickly demonstrating LOB. Pt was then instructed how to safely turn. After ~50ft pt was asked to turn around and this time pt was able to make safer turn. Pt returned to room sitting in chair CGA. Pt BP in sitting after activity 178/99 and 191/98, RN aware of BP. Sister arrived with pts belongings explaining to pt d /c plan. Left pt in chair with all needs within reach and chair alarm on. Gait Assessment Gait Gait Assistance Required: Contact Guard Assist,1 Person Assist Distance (Feet) 150 Able to Maintain Weight Bearing Status Yes During Gait Assistive Devices Assistive Device Gait Belt,Front Wheeled Walker Orthotic/Prosthetic Devices or Brace: No Gait Deviations General Gait Pattern Decreased Stride Length, Decreased Feet Clearance, Flexed Trunk Factors Limiting Gait Function Factors Limiting Gait Function Decreased Activity Tolerance, Decreased Strength,Difficulty Following Directions,Poor Balance,Poor Safety Awareness Comments Gait Comments See mobility comments. Stair Climbing Assessment Comments Stair Climbing Comments Not assessed. PT-Balance Assessment Sitting Balance and Reactions Static Sitting Balance Ability Good Dynamic Sitting Balance Ability Good Standing Balance and Reactions Static Standing Balance Ability Good Dynamic Standing Balance Ability Fair Device Used FWW M5 PT-IP Objective Assessments Start: 12/02/20 10:15 Freq: NEEDED Status: Active Protocol: Document 12/02/20 11:05 AW (Rec: 12/02/20 11:46 AW [id number]) Orientation Orientation/Cognition Level of Alertness Alert Orientation Name,Place,Situation Language Function Ability Expressive Aphasia,Receptive Aphasia,Word Finding Difficulties Safety Awareness Decreased Safety Awareness Memory Description Short Term Impaired Comments Pt answers many questions non- sensically but is aware of this. He communicates appreciation for assist and states he enjoys working with therapy. Gross Range of Motion Lower Extremity ROM Assessment Within Functional Limits Strength Lower Extremity Strength Assessment Bilaterally Impaired Comments Strength Comments LLE 3+/5 RLE 4/5 Coordination Assessment Gross Coordination Gross Coordination Impaired Assessment Finger to Nose Test Moderate Impairment Pronation/Supination Test Moderate Impairment Foot Tapping Test Minimal Impairment Coordination Comments Pt missed targets on EO finger to nose ~3 cm with LUE. Sensation Assessment Sensation Gross Sensation Left UE Impaired,Left LE Impaired Light Touch Impaired Proprioception (Position) Impaired Sensation Description Numbness Comments Sensation Comments Pt states he is able to feel light touch on his left side ( face, trunk, UE, LE) but it all feels slow compared with right side Muscle Tone Muscle Tone WNL Yes Comments Muscle Tone Comments Negative clonus at bilateral ankles and wrists Other Assessments Other Other Assessments Occulomotor exam grossly normal. Unable to complete vestibular exam but no signs of vestibular involvement. Visual clements appear intact. Left facial droop and drooling with pt reporting no awareness of drool. M6 PT-IP Treatment Start: 12/02/20 10:15 Freq: NEEDED Status: Active Protocol: Document 12/03/20 15:24 SP (Rec: 12/03/20 17:19 SP [id number]) Physical Therapy Treatment Education Education Provided Safety M7 PT-IP Assessment and Plan Start: 12/02/20 10:15 Freq: NEEDED Status: Active Protocol: Document 12/04/20 13:34 CLB (Rec: 12/04/20 14:35 CLB [id number]) PT Summary Assessment and Plan Potential Rehabilitation Potential Good Status of Condition at Evaluation Evolving Summary Impairments Pain,ROM,Strength,Balance, Coordination,Sensation,Tone, Cognition,Bed Mobility, Transfers,Gait,Activity Tolerance Progress Towards Goals Progressing Toward Goals,Slow Progress due to Medical Issues ,Slow Progress due to Activity Tolerance Assessment Summary Pt with BP 178/99 and 191/98 after activity. Pt ambulated ~ 150ft w/FWW/CGA with poor safety awareness and LOB during turns. Pt will benefit from Acute rehab to increase strength for improved activity tolerance and functional mobility. Goals Bed Mobility Goal Independent Transfer Goal Contact Guard Assistance,Front Wheeled Walker Gait Goal Contact Guard Assistance,Front Wheel Walker Gait Distance 100 Other Goals LTG: improve ambulation to SBA with LRAD 200 feet Days to Meet Goals 10 Frequency of Treatment Frequency Of Treatment Twice a Day Treatment Plan Physical Therapy Treatment Plan Bed Mobility Training,Transfer Training,Gait Training, Therapeutic Exercise,Balance Retraining,Discharge Planning, Neuromuscular Re-ed, Coordination Retraining Other Recommendations and Next Treatment gait using fWW, neuro re-ed Focus standing balance Precautions Other Precautions HTN Recommendations To Nursing Amount of Assist Needed 1 Person Assist Discharge Recommendations PT Discharge Recommendations Acute Rehab Equipment Needed for Home Before defer to rehab setting Discharge Transportation Needs at Discharge Wheelchair/Cabulance
--- NOTE | 2020-12-04 14:44 | PC.NURSE ---
Pt continues to improve, aphagia and speech clarity getting better with each day. Sister updated on POC and arrived @ 1400 to drop off suitcase, [facility] to pick patient up @ 1430. Report called into Else @ [facility] @ 1440. Noted that Pt left behind eye glasses in case. This RN will drop them off after shift today.
--- NOTE | 2020-12-04 14:54 | CM.DPNOTE ---
Addendum entered by ROSI Goodman 12/04/20 15:14: IMM reviewed and provided. Original Note: DC Note According to Dr Alves, patient is medically cleared for DC to SNF today Placed call to Pat at [facility], patient has a bed today. Reviewed this w/patient's sister and DPORTEGA Carr- patient and family aware and agreeable to this plan. Lilly bringing patient his belongings today for SNF stay. Faxed completed and signed med list and PASRR to [facility]. COVID updated. w/c p/u by J+B nathaniel arranged for 1500, updated RN and sister. Requested that GARCÍA Manning call nurse report to Pat Plan: DC to [facility] via w/c today JW
== END 2020-12-04 14:46 | DRG 65 ==
LOC: ED 11:10 → AC 13:35 → ICU 15:01
PROVIDERS: Internal Medicine; Admitting Provider Internal Medicine; Emergency Provider Emergency Medicine; Referring Provider Emergency Medicine; Visit Provider Internal Medicine
DX: I63.511 Cerebral infarction due to unspecified occlusion or stenosis of right middle cerebral artery (principal); G81.94 Hemiplegia, unspecified affecting left nondominant side; I50.32 Chronic diastolic (congestive) heart failure; I63.89 Other cerebral infarction; R47.01 Aphasia; R29.810 Facial weakness; I11.0 Hypertensive heart disease with heart failure; J44.9 Chronic obstructive pulmonary disease, unspecified; Z20.822 Contact with and (suspected) exposure to COVID-19; R29.710 NIHSS score 10; I69.398 Other sequelae of cerebral infarction; F41.9 Anxiety disorder, unspecified; Z66 Do not resuscitate
CPT/HCPCS: 36415; 70450; 70548; 70553; 71045; 80053; 80320; 82140; 82550; 83690; 85014; 85018; 85025; 85049; 85610; 85730; 87040; 87635; 87797; 92507; 92526; 92610; 93005; 94640; 97112; 97116; 97163; 97166; 97530; 97535; 99284; 99291; C9803; J0360; J1644